=== PATIENT | female | born 1990 | race Caucasian/White ===

== ENCOUNTER 2023-05-22 15:18 | Emergency (ER) | payer OTHER, SELFPAY ==
[2023-05-22 15:41] VITALS: BP 138/96; PULSE 117; RESP 20; TEMP 37.3; O2SAT 96
[2023-05-22 15:46] VITALS: O2SAT 96
[2023-05-22] MEDS: KETOROLAC (*BKC) 60 MG/2 ML VIAL IM (15:51)
[2023-05-22] MEDS: ONDANSETRON HCL ODT 4 MG TABLET PO (15:52)
[2023-05-22 16:26] LABS: Strep Group A RT-PCR NOT DETECTED (Negative)
[2023-05-22 16:29] LABS: SARS-CoV-2 RNA PCR Negative (Negative)
[2023-05-22 16:39] LABS: Influenza A QL RT-PCR Negative (Negative); Influenza B QL RT-PCR Negative (Negative); RSV RNA, RT-PCR Negative (Negative)
--- NOTE | 2023-05-22 16:46 | ED.URI ---
HPI - URI/Sore Throat General Chief Complaint: Upper Respiratory Infection Stated Complaint: Cold symptoms Time Seen by Provider: 05/22/23 15:25 Source: patient Mode of arrival: ambulatory Limitations: no limitations History of Present Illness HPI Narrative: this is a 33-year-old female with no significant past medical history presents with cough congestion sinus pressure with a sinus headache with postnasal drip no shortness of breath no audible wheezing no fever chills. MD elicited complaint: cough, nasal congestion and sinus pain Onset (ago): day(s) Consistency: constant Severity: moderate Description of mucous: clear Exacerbating factors: nothing Related Data Allergies Allergy/AdvReac Type Severity Reaction Status Date / Time codeine Allergy Rash Verified 05/22/23 15:40 Penicillins Allergy Rash Verified 05/22/23 15:40 Review of Systems Review of Systems: All systems reviewed & are unremarkable except as noted in HPI and below PMFSH Past Medical History Medical History Patient denies medical problems Exam Const: General: healthy appearing Nutritional Appearance: well nourished Orientation/consciousness: patient oriented x3 Limitations: no limitations HENMT: Head: normal to inspection Other: frontal sinus and maxillary sinus tenderness with palpation Neck: Neck: normal visual inspection, no lymphadenopathy and no meningeal signs Resp: Effort & Inspection: normal respiratory effort Auscultation: clear to auscultation bilaterally Cardio: Rate: regular rate Rhythm: regular rhythm GI: GI Palp: Yes Soft to palpation Course Course Emergency Course: patient with headache and nausea given Zofran and Toradol, strep and COVID RSV and influenza negative will give a dose of Zithromax and sent a prescription for Z-Brant to patient's pharmacy. Vital Signs Vital signs: Vital Signs Temperature 37.3 C 05/22/23 15:41 Pulse Rate 117 H 05/22/23 15:41 Respiratory Rate 20 05/22/23 15:41 Blood Pressure 138/96 H 05/22/23 15:41 Pulse Oximetry 96 05/22/23 15:41 Oxygen Delivery Room Air 05/22/23 15:41 Temperature 37.3 C 05/22/23 15:41 Pulse Rate 117 H 05/22/23 15:41 Respiratory Rate 20 05/22/23 15:41 Blood Pressure 138/96 H 05/22/23 15:41 Pulse Oximetry 96 05/22/23 15:46 Oxygen Delivery Room Air 05/22/23 15:41 MDM - URI/Sore Throat Lab Data Labs: Lab Results 05/22/23 Range/Units 15:48 Influenza A (RT-PCR) Negative (Negative) Influenza B (RT-PCR) Negative (Negative) RSV (RT-PCR) Negative (Negative) SARS-CoV-2 RNA (RT-PCR) Negative (Negative) Group A Strep (PCR) Not detected (Negative) Critical Care Time Critical Care Time Critical Care Time: No Discharge Plan Discharge Clinical Impression: Sinusitis Qualifiers: Sinusitis location: frontal Chronicity: acute Recurrence: non-recurrent Qualified Code(s): J01.10 - Acute frontal sinusitis, unspecified Patient Disposition: Home, Self-Care Condition: Stable Instructions: Antibiotic Form, Sinusitis (ED) Additional Instructions: To take medicine as prescribed and follow-up with primary care physician if symptoms persist or worsen. Prescriptions: New azithromycin [Zithromax Z-Brant] 250 mg tablet See Rx Instructions .ROUTE .COMPLEX Qty: 6 0RF Rx Instructions: For 250 mg dose pack: take 500 mg today (day 1), then 250 mg for 4 days (days 2-5) naproxen 500 mg tablet 500 mg PO BID PRN (Reason: pain) Qty: 14 0RF fluticasone propionate [Flonase Allergy Relief] 50 mcg/actuation spray,suspension 2 spray intranasal DAILY Qty: 16 0RF Rx Instructions: administer into each nostril Follow-up/Referrals: UNKNOWN,DOCTOR [Primary Care Provider] - Time of Disposition: 16:52
[2023-05-22 16:59] VITALS: BP 114/76; PULSE 104; RESP 18; TEMP 37.4; O2SAT 94
[2023-05-22] MEDS: AZITHROMYCIN 250 MG TABLET 500 MG PO (17:00)
== END 2023-05-22 17:02 | disposition home or self-care (01) ==
PROVIDERS: Emergency Provider Emergency Medicine
DX: J01.10 Acute frontal sinusitis, unspecified (principal); Z20.822 Contact with and (suspected) exposure to COVID-19
CPT/HCPCS: 87637; 87651; 96372; 99283; A9270; J1885

== ENCOUNTER 2023-08-01 16:11 | Emergency (ER) | payer OTHER, SELFPAY ==
--- NOTE | ~2023-08-01 | XR_ITS ---
EXAMINATION: XR chest 1V portable DATE: 08/01/2023 16:41 INDICATION: Chest pain. TECHNIQUE: A single frontal view of the chest was obtained. COMPARISON: None. FINDINGS: There is no pneumonia, pleural effusion, or pneumothorax. The heart size is normal. IMPRESSION: 1. No acute cardiopulmonary disease. Reviewed, dictated and finalized at location E. [employer]
[2023-08-01 16:16] VITALS: BP 147/81; PULSE 111; RESP 16; TEMP 37.7; O2SAT 97
--- NOTE | 2023-08-01 16:22 | ED.URI ---
HPI - URI/Sore Throat General Chief Complaint: Upper Respiratory Infection Stated Complaint: flu symptoms Time Seen by Provider: 08/01/23 16:21 Source: patient Mode of arrival: ambulatory Limitations: no limitations History of Present Illness HPI Narrative: Patient is a 33-year-old female with a cough and chest congestion for the past 3 days. She has body aches and pains. She has a low-grade fever. She has associated nausea vomiting. MD elicited complaint: fever, cough, sore throat, nasal congestion and sinus pain Onset (ago): day(s) (3) Consistency: constant and progressively worsening Severity: moderate Description of mucous: yellow Able to tolerate fluids by mouth: Yes Exacerbating factors: nothing Relieving factors: nothing Context: sick contacts (kids) Associated symptoms: headache, rhinorrhea, nasal congestion, sore throat, cough, shortness of breath, nausea and vomiting Treatments prior to arrival: none Related Data Home Medications Medication Instructions Recorded Confirmed gabapentin 100 mg capsule 100 mg PO TID 08/01/23 08/01/23 prazosin 1 mg capsule 1 mg PO HS 08/01/23 08/01/23 Allergies Allergy/AdvReac Type Severity Reaction Status Date / Time codeine Allergy Rash Verified 08/01/23 16:20 Penicillins Allergy Rash Verified 08/01/23 16:20 Review of Systems Review of Systems: All systems reviewed & are unremarkable except as noted in HPI and below Constitutional: Constitutional: Reports no additional constitutional complaints Eyes: Eyes: Reports no additional eye complaints ENT: Reports system reviewed and no additional complaints, except as documented Cardiovascular: Cardiovascular: Reports no additional cardiovascular complaints Respiratory: Respiratory: Reports no additional respiratory complaints Gastrointestinal: Gastrointestinal: Reports no additional gastrointestinal complaints Genitourinary: Genitourinary: Reports no additional female genitourinary complaints Musculoskeletal: Musculoskeletal: Reports no additional musculoskeletal complaints Integumentary/Breasts: Skin/Breast: Reports system reviewed and no additional complaints, except as docu Neurologic: Reports system reviewed and no additional complaints, except as documented Psychiatric: Psychiatric: Reports no additional psychiatric complaints Endocrine: Endocrine: Reports no additional endocrine complaints Hematologic/Lymphatic: Hematologic/Lymphatic: Reports no additional hematologic/lymphatic complaints Allergic/Immunologic: Allergic/Immunologic: Reports no additional allergic/immunologic complaints PMFSH Past Medical History Medical History Patient denies medical problems Exam Const: General: ill appearing Nutritional Appearance: well nourished Orientation/consciousness: patient oriented x3 HENMT: Head: normal to inspection Ears: external ears normal Face/Nose/Sinus: Normal external nose present Eyes: Conjunctivae: conjunctivae normal Pupils: Equal, round and reactive pupils present EOM: EOMs intact bilaterally Neck: Neck: normal visual inspection Chest: Chest palpation & inspection: normal inspection of the chest Resp: Effort & Inspection: normal respiratory effort and not labored Auscultation: clear to auscultation bilaterally and no crackles Cardio: Rate: regular rate Rhythm: regular rhythm Heart sounds: no murmurs GI: Inspection: non-distended GI Palp: Yes Soft to palpation and No Tenderness to palpation present (GI) Auscultation: normal bowel sounds : General: Yes bladder normal to palpation Back/Spine/Pelvis: Back: no CVA tenderness Skin: General skin exam: normal color Rashes: no rashes Wounds: no wounds Neuro: General: patient oriented x3 Cranial nerves: Yes Nystagmus not present Speech: normal speech Extrem: General: normal to inspection Psych: Mental Status: mental status grossly normal Affect: normal affect Attitud
[2023-08-01 16:58] LABS: SARS-CoV-2 RNA PCR Negative (Negative)
[2023-08-01 16:59] LABS: Influenza A QL RT-PCR Negative (Negative); Influenza B QL RT-PCR Positive (Negative); RSV RNA, RT-PCR Negative (Negative)
[2023-08-01 17:04] VITALS: BP 142/87; PULSE 101; RESP 18; TEMP 37.3; O2SAT 99
== END 2023-08-01 17:13 | disposition home or self-care (01) ==
PROVIDERS: Emergency Provider Emergency Medicine
DX: J10.1 Influenza due to other identified influenza virus with other respiratory manifestations (principal); Z79.899 Other long term (current) drug therapy; Z20.822 Contact with and (suspected) exposure to COVID-19
CPT/HCPCS: 71045; 87637; 99283

== ENCOUNTER 2023-08-07 17:18 | Emergency (ER) | payer OTHER, SELFPAY ==
--- NOTE | ~2023-08-07 | XR_ITS ---
EXAMINATION: XR chest 1V portable INDICATION: Cough and congestion TECHNIQUE: Portable AP chest at 1815 hours COMPARISON: 08/01/2023 FINDINGS: The lungs are free of acute opacities. No pleural effusion or pneumothorax. The cardiomedia stinal silhouette is normal. The visualized bones and soft tissues are unremarkable. IMPRESSION: 1. No acute cardiopulmonary abnormality. Reviewed, dictated and finalized at location F. [employer] READER
[2023-08-07 17:20] VITALS: BP 135/92; PULSE 96; RESP 20; TEMP 36.9; O2SAT 96
[2023-08-07 18:03] VITALS: O2SAT 96
--- NOTE | 2023-08-07 18:24 | ED.URI ---
HPI - URI/Sore Throat General Chief Complaint: Upper Respiratory Infection Stated Complaint: cough and sore throat Time Seen by Provider: 08/07/23 17:19 Source: patient Mode of arrival: ambulatory Limitations: no limitations History of Present Illness HPI Narrative: This is a 33-year-old female recently diagnosed with influenza was seen in our ER about 3 to 4 days ago, continues to have cough and congestion no fever or chills no nausea or vomiting. MD elicited complaint: cough and nasal congestion Onset (ago): day(s) Consistency: constant Severity: mild Related Data Allergies Allergy/AdvReac Type Severity Reaction Status Date / Time codeine Allergy Rash Verified 08/07/23 17:42 Penicillins Allergy Rash Verified 08/07/23 17:42 Review of Systems Review of Systems: All systems reviewed & are unremarkable except as noted in HPI and below PMFSH Past Medical History Medical History Patient denies medical problems Exam Const: General: healthy appearing and no acute distress Nutritional Appearance: well nourished Limitations: no limitations HENMT: Head: normal to inspection Chest: Chest palpation & inspection: normal inspection of the chest Resp: Effort & Inspection: normal respiratory effort Auscultation: clear to auscultation bilaterally Cardio: Rate: regular rate Rhythm: regular rhythm GI: GI Palp: Yes Soft to palpation Course Course Emergency Course: Patient recently diagnosed with influenza, has a persistent cough chest x-ray performed shows no acute cardiopulmonary abnormality. Vital Signs Vital signs: Vital Signs Temperature 36.9 C 08/07/23 17:20 Pulse Rate 08/07/23 17:20 Respiratory Rate 08/07/23 17:20 Blood Pressure 135/92 H 08/07/23 17:20 Pulse Oximetry 08/07/23 17:20 Oxygen Delivery Room Air 08/07/23 17:20 Temperature 36.9 C 08/07/23 17:20 Pulse Rate 08/07/23 17:20 Respiratory Rate 08/07/23 17:20 Blood Pressure 135/92 H 08/07/23 17:20 Pulse Oximetry 08/07/23 18:03 Oxygen Delivery Room Air 08/07/23 18:03 Critical Care Time Critical Care Time Critical Care Time: No Discharge Plan Discharge Clinical Impression: Influenza Patient Disposition: Home, Self-Care Condition: Stable Instructions: Antibiotic Form, Influenza (ED) Additional Instructions: Advised to take medicine as prescribed and follow up with primary within 1 week for further evaluation and treatment. Prescriptions: New ProAir RespiClick 90 mcg/actuation aerosol powdr breath activated 2 inh inhalation QID PRN (Reason: shortness of breath) Qty: 1 0RF benzonatate 100 mg capsule 100 mg PO TID Qty: 20 0RF Follow-up/Referrals: Murali,Luke Durham, [employer] [Primary Care Provider] - Time of Disposition: 18:27
[2023-08-07 18:49] VITALS: BP 129/74; PULSE 88; RESP 16; TEMP 37; O2SAT 98
== END 2023-08-07 18:49 | disposition home or self-care (01) ==
PROVIDERS: Emergency Provider Emergency Medicine; PCP Nurse Practitioner Family
DX: J11.1 Influenza due to unidentified influenza virus with other respiratory manifestations (principal)
CPT/HCPCS: 71045; 99283

== ENCOUNTER 2023-12-21 10:29 | Emergency (ER) | payer OTHER, SELFPAY ==
--- NOTE | ~2023-12-21 | CT_ITS ---
EXAMINATION: CT abdomen pelvis wo con DATE: 12/21/2023 11:15 INDICATION: Bilateral flank pain TECHNIQUE: Computed tomography (CT) of the abdomen and pelvis was performed without intravenous contr ast. Automated exposure control and iterative reconstruction technique were employed. The The dose-le ngth product was 909.42 mGy-cm. COMPARISON: None FINDINGS: Lung bases are clear. Heart size is normal. No pericardial or pleural effusion. Liver, gallbladder, s pleen and pancreas and bilateral adrenal glands are normal. Kidneys and ureters are normal with no ur olithiasis, hydroureteronephrosis or perinephric/ureteral stranding. Bladder is decompressed. There i s a macroscopic fat filled cleft along the anterior lower uterine segment potentially sectio n scar. Bilateral adnexa are unremarkable. There are few small phleboliths in the pelvis. Bowels incl uding the appendix are normal. No free intraperitoneal gas or fluid. No pathologically enlarged abdom inal or pelvic lymphadenopathy. Bones are unremarkable. IMPRESSION: 1. No urolithiasis or acute intra-abdominal/pelvic process. Reviewed, dictated and finalized at location A.
[2023-12-21 10:31] VITALS: BP 147/96; PULSE 105; RESP 18; TEMP 37.2; O2SAT 98
--- NOTE | 2023-12-21 10:45 | ED.GENADULT ---
HPI - General Adult General Chief complaint: Urogenital-Female Stated complaint: urinary frequency Time Seen by Provider: 12/21/23 10:32 History of Present Illness HPI narrative: Yudith is a 33F with a PMH of pyelonephritis that presented to the ED with a few days of increased urinary frequency, dysuria, aches and now bilateral kidney pain. No fevers, chills, vomiting, CP or dyspnea. Related Data Allergies Allergy/AdvReac Type Severity Reaction Status Date / Time codeine Allergy Rash Verified 12/21/23 10:34 Penicillins Allergy Rash Verified 12/21/23 10:34 Review of Systems Review of Systems: All systems reviewed & are unremarkable except as noted in HPI and below [facility] Past Medical History Medical History Patient denies medical problems Exam Const: General: cooperative, healthy appearing, comfortable, no acute distress, well developed, alert, awake and Physically active Orientation/consciousness: oriented to person, oriented to place and oriented to time HENMT: Head: normal to inspection, normocephalic and atraumatic Ears: hearing grossly normal bilaterally and external ears normal Face/Nose/Sinus: Normal external nose present Eyes: General: appearance normal, both eyes and all related structures Periorbital: periorbital findings normal Sclera: sclerae normal Pupils: Equal, round and reactive pupils present Neck: Neck: normal visual inspection Chest: Chest palpation & inspection: normal inspection of the chest Resp: Effort & Inspection: normal respiratory effort, able to speak in complete sentences and no respiratory distress Auscultation: clear to auscultation bilaterally Cardio: Jugular venous distension: no JVD Rate: regular rate Rhythm: regular rhythm GI: Inspection: normal to inspection GI Palp: Yes Soft to palpation Auscultation: normal bowel sounds : Other: Bilateral flank tenderness Skin: General skin exam: normal color and no rashes or lesions noted Neuro: General: oriented to person, oriented to place and oriented to time Cranial nerves: Yes Equal, round and reactive pupils present Extrem: General: normal to inspection Course Course Emergency Course: -Ordered UA, CT, labs, fluids, toradol, zofran and ceftriaxone UA has blood, bacteria, leuk esterase likely from UTI. CBC and chemistries unremarkable EXAMINATION: CT abdomen pelvis wo con DATE: 12/21/2023 11:15 INDICATION: Bilateral flank pain TECHNIQUE: Computed tomography (CT) of the abdomen and pelvis was performed without intravenous contrast. Automated exposure control and iterative reconstruction technique were employed. The The dose-length product was 909.42 mGy-cm. COMPARISON: None FINDINGS: Lung bases are clear. Heart size is normal. No pericardial or pleural effusion. Liver, gallbladder, spleen and pancreas and bilateral adrenal glands are normal. Kidneys and ureters are normal with no urolithiasis, hydroureteronephrosis or perinephric/ureteral stranding. Bladder is decompressed. There is a macroscopic fat filled cleft along the anterior lower uterine segment potentially section scar. Bilateral adnexa are unremarkable. There are few small phleboliths in the pelvis. Bowels including the appendix are normal. No free intraperitoneal gas or fluid. No pathologically enlarged abdominal or pelvic lymphadenopathy. Bones are unremarkable. IMPRESSION: 1. No urolithiasis or acute intra-abdominal/pelvic process. Vital Signs Vital signs: Vital Signs Temperature 98.9 F 12/21/23 10:31 Pulse Rate 105 H 12/21/23 10:31 Respiratory Rate 18 12/21/23 10:31 Blood Pressure 147/96 H 12/21/23 10:31 Pulse Oximetry 98 12/21/23 10:31 Oxygen Delivery Room Air 12/21/23 10:31 Temperature 98.9 F 12/21/23 10:31 Pulse Rate 66 12/21/23 12:38 Respiratory Rate 16 12/21/23 12:38 Blood Pressure 124/78 12/21/23 12:38 Pulse Oximetry 99 12/21/23 12:38 Ox
[2023-12-21 11:00] LABS: Basophils Absolute Auto 0.04 K/mm3 (0.00-0.10); Basophils Percent Auto 0.6 % (0.0-1.0); Eosinophils Absolute Auto 0.09 K/mm3 (0.02-0.50); Eosinophils Percent Auto 1.4 % (1.0-6.0); Hematocrit 37.8 % (35.0-49.0); Hemoglobin 11.9 g/dL (12.0-15.0); Immature Granulocyte Absolute 0.02 K/mm3 (0.00-0.00); Immature Granulocyte Percent A 0.3 % (0.0-0.0); Lymphocytes Percent Auto 19.9 % (18.0-42.0); Mean Corpuscular HGB Conc 31.5 g/dL (32-36); Mean Corpuscular Volume 73.1 fL (78.0-102.0); Mean Platelet Volume 9.5 fl (9.2-11.8); Monocytes Absolute Auto 0.38 K/mm3 (0.10-0.90); Monocytes Percent Auto 5.8 % (2.0-11.0); Platelet Count Result 386 K/mm3 (150-420); Red Blood Count 5.17 M/mm3 (4.20-5.40); Red Cell Distribution Width 17.4 % (11.6-14.4); White Blood Count 6.5 K/mm3 (4.8-10.8)
[2023-12-21 11:01] LABS: Appearance Urine Clear (Clear); Bilirubin Urine Negative (Negative); Blood Urine Negative (Negative); Color Urine Yellow (Yellow); Glucose Urine UA Negative (Negative); Ketones Urine Negative (Negative); Leukocyte Esterase Ur 1+ LEU/UL (Negative); Nitrate Urine Negative (Negative); Protein Urine Negative (Negative)
[2023-12-21 11:08] LABS: Add Urine Microscopic? YES
[2023-12-21 11:09] LABS: Amorphous Sediment Urine Moderate; Bacteria Urine 1+ /hpf; Mucus Urine Moderate /lpf; Squamous Epithelial Cell Urine Many /hpf (Few); WBC Urine 16-20 /hpf (0-3)
[2023-12-21 11:13] LABS: Alanine Aminotransferase 19 U/L (14-59); Albumin Level 3.7 g/dL (3.4-5.0); Alkaline Phosphatase 79 U/L (46-116); Anion Gap 12 mmol/L (4-12); Aspartate Amino Transferase 14 U/L (15-37); Bilirubin,Total 0.2 mg/dL (0.00-1.00); Blood Urea Nitrogen 10 mg/dL (7-18); CRP 1.6 mg/dL (0.0-0.9); Calcium 8.9 mg/dL (8.5-10.1); Carbon Dioxide 25 mmol/L (21-32); Chloride 101 mmol/L (98-108); Estimated CRCL calculation 108 ml/min; Estimated Glomerular Filt Rate > 60; Glucose 120 mg/dL (70-99); Lipase 31 U/L (16-77); Osmolality Calculated 286 mOsm/kg (285-295); Sodium 138 mmol/L (136-145); Total Protein 7.7 g/dL (6.4-8.2)
[2023-12-21] MEDS: SODIUM CHLORIDE 0.9% IV 1,000 ML 999 ML IV CONT (11:17)
[2023-12-21] MEDS: KETOROLAC 15 MG/ML VIAL (*BKC) IV PUSH (11:20)
[2023-12-21] MEDS: cefTRIAXone 2 GM/NS 100 ML 2 GM/100 ML BAG IVPB (11:21)
[2023-12-21] MEDS: ONDANSETRON INJ 4 MG/2 ML VIAL IV PUSH (11:21)
[2023-12-21 12:38] VITALS: BP 124/78; PULSE 66; RESP 16; O2SAT 99
--- NOTE | 2023-12-23 12:13 | PC.NURSE ---
Final urine culture report: Mixed genital ole. Per ERP no further treatment or action needed.
== END 2023-12-21 12:43 | disposition home or self-care (01) ==
PROVIDERS: Emergency Provider Family Medicine
DX: N39.0 Urinary tract infection, site not specified (principal)
CPT/HCPCS: 36415; 74176; 80053; 81001; 83605; 83690; 85025; 86140; 87086; 87088; 96361; 96365; 96375; 99284; J0696; J1885; J2405; J7030

== ENCOUNTER 2024-02-15 10:30 | Emergency (ER) | payer OTHER, SELFPAY ==
[2024-02-15 10:30] VITALS: BP 130/70; PULSE 96; RESP 18; TEMP 36.3; O2SAT 96
--- NOTE | 2024-02-15 10:37 | ED.URI ---
HPI - URI/Sore Throat General Chief Complaint: Upper Respiratory Infection Stated Complaint: cough Time Seen by Provider: 02/15/24 10:36 Source: patient Mode of arrival: ambulatory Limitations: no limitations History of Present Illness HPI Narrative: Patient is a 33-year-old female who has a cough and headache with upper respiratory congestion. Her child's school and had it recently as well. No asthma or shortness of breath. MD elicited complaint: cough and nasal congestion Onset (ago): day(s) (2) Consistency: constant Severity: mild Pain scale (0-10): 3 Description of mucous: clear and watery Able to tolerate fluids by mouth: Yes Exacerbating factors: nothing Relieving factors: nothing Context: sick contacts Associated symptoms: myalgias, headache, nasal congestion, nausea and vomiting Treatments prior to arrival: cold medicine Related Data Allergies Allergy/AdvReac Type Severity Reaction Status Date / Time codeine Allergy Rash Verified 02/15/24 10:57 Penicillins Allergy Rash Verified 02/15/24 10:57 Review of Systems Review of Systems: All systems reviewed & are unremarkable except as noted in HPI and below Constitutional: Constitutional: Reports no additional constitutional complaints Eyes: Eyes: Reports no additional eye complaints ENT: Reports system reviewed and no additional complaints, except as documented Cardiovascular: Cardiovascular: Reports no additional cardiovascular complaints Respiratory: Respiratory: Reports no additional respiratory complaints Gastrointestinal: Gastrointestinal: Reports no additional gastrointestinal complaints Genitourinary: Genitourinary: Reports no additional female genitourinary complaints Musculoskeletal: Musculoskeletal: Reports no additional musculoskeletal complaints Integumentary/Breasts: Skin/Breast: Reports system reviewed and no additional complaints, except as docu Neurologic: Reports system reviewed and no additional complaints, except as documented Psychiatric: Psychiatric: Reports no additional psychiatric complaints Endocrine: Endocrine: Reports no additional endocrine complaints Hematologic/Lymphatic: Hematologic/Lymphatic: Reports no additional hematologic/lymphatic complaints Allergic/Immunologic: Allergic/Immunologic: Reports no additional allergic/immunologic complaints PMFSH Past Medical History Medical History Patient denies medical problems Exam Const: General: healthy appearing Nutritional Appearance: well nourished Orientation/consciousness: patient oriented x3 HENMT: Head: normal to inspection Ears: external ears normal Face/Nose/Sinus: Normal external nose present Eyes: Conjunctivae: conjunctivae normal Pupils: Equal, round and reactive pupils present EOM: EOMs intact bilaterally Neck: Neck: normal visual inspection Chest: Chest palpation & inspection: normal inspection of the chest Resp: Effort & Inspection: normal respiratory effort and not labored Auscultation: clear to auscultation bilaterally and no crackles Cardio: Rate: regular rate Rhythm: regular rhythm Heart sounds: no murmurs GI: Inspection: non-distended GI Palp: Yes Soft to palpation and No Tenderness to palpation present (GI) Auscultation: normal bowel sounds : General: Yes bladder normal to palpation Back/Spine/Pelvis: Back: no CVA tenderness Skin: General skin exam: normal color Rashes: no rashes Wounds: no wounds Neuro: General: patient oriented x3 Cranial nerves: Yes Nystagmus not present Speech: normal speech Extrem: General: normal to inspection Psych: Mental Status: mental status grossly normal Affect: normal affect Attitude: cooperative Course Vital Signs Vital signs: Vital Signs Temperature 36.3 C L 02/15/24 10:30 Pulse Rate 96 02/15/24 10:30 Respiratory Rate 18 02/15/24 10:30 Blood Pressure 130/70 02/15/24 10:30 Pulse Oximetry 96 02/15/24 10:30
[2024-02-15 10:55] LABS: Pregnancy On Board Control Positive; Urine Pregnancy Test Negative
[2024-02-15 11:03] VITALS: O2SAT 96
[2024-02-15 11:23] LABS: SARS-CoV-2 RNA PCR Negative (Negative)
[2024-02-15 11:24] LABS: Influenza A QL RT-PCR Negative (Negative); Influenza B QL RT-PCR Negative (Negative); RSV RNA, RT-PCR Negative (Negative)
[2024-02-15 12:00] VITALS: BP 121/60; PULSE 65; RESP 16; TEMP 36.6; O2SAT 98
== END 2024-02-15 12:00 | disposition home or self-care (01) ==
PROVIDERS: Emergency Provider Emergency Medicine
DX: B34.9 Viral infection, unspecified (principal); Z20.822 Contact with and (suspected) exposure to COVID-19
CPT/HCPCS: 81025; 87637; 99283

== ENCOUNTER 2024-03-05 16:52 | Emergency (ER) | payer OTHER, SELFPAY ==
--- NOTE | ~2024-03-05 | CT_ITS ---
EXAMINATION: CT abdomen pelvis wo con DATE: 03/05/2024 17:39 INDICATION: LLQ abdominal pain x3 days TECHNIQUE: Computed tomography (CT) of the abdomen and pelvis was performed without intravenous contr ast. Automated exposure control and iterative reconstruction technique were employed. The dose-length product was 946.70 mGy-cm. COMPARISON: 12/21/2023. FINDINGS: Lower thorax: Unremarkable Liver: Normal. Biliary/Gallbladder: Gallbladder is normal. No bile duct dilation. Pancreas: No mass or duct dilation. Spleen: Normal. Adrenals:No mass. Kidneys: No suspicious mass, obstructing stone, or hydronephrosis. GI tract: No small or large bowel dilation. Normal appendix. Mesentery/Peritoneum: No ascites, mass, or free air. Retroperitoneum: No mass. Pelvis: Possible scar in otherwise normal uterus. Normal bilateral ovaries. 2.1 cm simple ri ght ovarian cyst. Soft Tissues: Soft tissues and body wall unremarkable. Bones: No acute osseous finding. IMPRESSION: No acute abdominopelvic process detected Reviewed, dictated and finalized at location K.
[2024-03-05 16:54] VITALS: BP 147/94; PULSE 88; RESP 18; TEMP 36.9; O2SAT 97
--- NOTE | 2024-03-05 16:55 | ED.ABDPAIN ---
HPI - Abdominal Pain General Chief Complaint: Abdominal Pain Stated Complaint: left side AB pain Time Seen by Provider: 03/05/24 16:54 Source: patient Mode of arrival: ambulatory Limitations: no limitations History of Present Illness HPI narrative: Patient is a 34-year-old female with left lower quadrant and left groin discomfort for the past 3-4 days. It is a sharp pain. It is intermittent. It is 6/10. She is due for her menstrual cycle in the next few days. She has a history of ovarian cysts. Normal bowel movement this morning. MD elicited complaint: abdominal pain Pertinent past history: other ( Ovarian cysts) Onset (ago): day(s) (4) Pain Consistency: intermittent Location: LLQ and groin ( left) Severity: moderate Pain scale (0-10): 6 Quality: stabbing and sharp Radiation: none Migration to: no migration Exacerbating factors: nothing Relieving factors: nothing Context: confirms history of similar episodes ( ovarian cysts) Associated symptoms: denies other symptoms Related Data Allergies Allergy/AdvReac Type Severity Reaction Status Date / Time codeine Allergy Rash Verified 02/15/24 10:57 Penicillins Allergy Rash Verified 02/15/24 10:57 Review of Systems Review of Systems: All systems reviewed & are unremarkable except as noted in HPI and below Constitutional: Constitutional: Reports no additional constitutional complaints Eyes: Eyes: Reports no additional eye complaints ENT: Reports system reviewed and no additional complaints, except as documented Cardiovascular: Cardiovascular: Reports no additional cardiovascular complaints Respiratory: Respiratory: Reports no additional respiratory complaints Gastrointestinal: Gastrointestinal: Reports no additional gastrointestinal complaints Genitourinary: Genitourinary: Reports no additional female genitourinary complaints Musculoskeletal: Musculoskeletal: Reports no additional musculoskeletal complaints Neurologic: Reports system reviewed and no additional complaints, except as documented Psychiatric: Psychiatric: Reports no additional psychiatric complaints Endocrine: Endocrine: Reports no additional endocrine complaints Hematologic/Lymphatic: Hematologic/Lymphatic: Reports no additional hematologic/lymphatic complaints Allergic/Immunologic: Allergic/Immunologic: Reports no additional allergic/immunologic complaints PMFSH Past Medical History Medical History Patient denies medical problems Exam Const: General: healthy appearing Nutritional Appearance: well nourished Orientation/consciousness: patient oriented x3 HENMT: Head: normal to inspection Ears: external ears normal Face/Nose/Sinus: Normal external nose present Eyes: Conjunctivae: conjunctivae normal Pupils: Equal, round and reactive pupils present EOM: EOMs intact bilaterally Neck: Neck: normal visual inspection Chest: Chest palpation & inspection: normal inspection of the chest Resp: Effort & Inspection: normal respiratory effort and not labored Auscultation: clear to auscultation bilaterally and no crackles Cardio: Rate: regular rate Rhythm: regular rhythm Heart sounds: no murmurs GI: Inspection: non-distended GI Palp: Yes Soft to palpation and No Tenderness to palpation present (GI) Auscultation: normal bowel sounds : General: Yes bladder normal to palpation Back/Spine/Pelvis: Back: no CVA tenderness Skin: General skin exam: normal color Rashes: no rashes Wounds: no wounds Neuro: General: patient oriented x3 Cranial nerves: Yes Nystagmus not present Speech: normal speech Gait exam (Neuro): Normal gait present Extrem: General: normal to inspection Psych: Mental Status: mental status grossly normal Affect: normal affect Attitude: cooperative Course Vital Signs Vital signs: Vital Signs Temperature 36.9 C 03/05/24 16:54 Pulse Rate 88 03/05/24 16:54 Respiratory Rate 18 03/05/24 16:54
[2024-03-05 17:12] LABS: Add Urine Microscopic? YES; Appearance Urine Clear (Clear); Bilirubin Urine Negative (Negative); Blood Urine 1+ (Negative); Color Urine Light Yellow (Yellow); Glucose Urine UA Negative (Negative); Ketones Urine Negative (Negative); Leukocyte Esterase Ur 3+ LEU/UL (Negative); Nitrate Urine Negative (Negative); Protein Urine Negative (Negative); pH Urine 6.5 (5.0-8.0)
[2024-03-05] MEDS: KETOROLAC (*BKC) 60 MG/2 ML VIAL IM (17:15)
[2024-03-05 17:17] LABS: Basophils Absolute Auto 0.02 K/mm3 (0.00-0.10); Basophils Percent Auto 0.4 % (0.0-1.0); Eosinophils Absolute Auto 0.12 K/mm3 (0.02-0.50); Eosinophils Percent Auto 2.4 % (1.0-6.0); Hematocrit 37.4 % (35.0-49.0); Hemoglobin 11.6 g/dL (12.0-15.0); Lymphocytes Absolute Auto 1.62 K/mm3 (1.10-4.50); Lymphocytes Percent Auto 31.8 % (18.0-42.0); Mean Corpuscular Hemoglobin 23.1 pg (27.0-31.0); Mean Corpuscular Volume 74.5 fL (78.0-102.0); Mean Platelet Volume 9.5 fl (9.2-11.8); Monocytes Absolute Auto 0.52 K/mm3 (0.10-0.90); Monocytes Percent Auto 10.2 % (2.0-11.0); Neutrophils Absolute Auto 2.81 K/mm3 (1.70-7.20); Neutrophils Percent Auto 55.2 % (50.0-70.0); Platelet Count Result 364 K/mm3 (150-420); Red Blood Count 5.02 M/mm3 (4.20-5.40); Red Cell Distribution Width 17.7 % (11.6-14.4); White Blood Count 5.1 K/mm3 (4.8-10.8)
[2024-03-05 17:18] LABS: Bacteria Urine 2+ /hpf; Squamous Epithelial Cell Urine Few /hpf (Few); WBC Urine 16-20 /hpf (0-3)
[2024-03-05 17:19] LABS: Pregnancy On Board Control Positive; Urine Pregnancy Test Negative
[2024-03-05 17:32] LABS: Alanine Aminotransferase 26 U/L (14-59); Albumin Level 3.7 g/dL (3.4-5.0); Alkaline Phosphatase 79 U/L (46-116); Anion Gap 12 mmol/L (4-12); Aspartate Amino Transferase 18 U/L (15-37); Bilirubin,Total 0.2 mg/dL (0.00-1.00); Blood Urea Nitrogen 9 mg/dL (7-18); Calcium 8.7 mg/dL (8.5-10.1); Carbon Dioxide 25 mmol/L (21-32); Chloride 102 mmol/L (98-108); Estimated CRCL calculation 104 ml/min; Estimated Glomerular Filt Rate > 60; Glucose 80 mg/dL (70-99); Lipase 29 U/L (16-77); Osmolality Calculated 285 mOsm/kg (285-295); Potassium 3.8 mmol/L (3.5-5.1); Sodium 139 mmol/L (136-145); Total Protein 7.5 g/dL (6.4-8.2)
[2024-03-05 17:37] LABS: Lactic Acid Reflex 0.8 mmol/L (0.4-2.0)
--- NOTE | 2024-03-05 17:57 | PC.NURSE ---
pt informed of pending urine culture. encouraged to complete all antibiotics. if any change is needed to antibiotic, will be notified by phone. pt voiced understanding
[2024-03-05 17:58] VITALS: BP 138/80; PULSE 84; RESP 20; TEMP 36.6; O2SAT 99
--- NOTE | 2024-03-07 13:41 | PC.NURSE ---
FINAL URINE CULTURE NO GROWTH
== END 2024-03-05 17:49 | disposition home or self-care (01) ==
PROVIDERS: Emergency Provider Emergency Medicine
DX: N30.00 Acute cystitis without hematuria (principal)
CPT/HCPCS: 36415; 74176; 80053; 81001; 81025; 83605; 83690; 85025; 87086; 96372; 99284; J1885

== ENCOUNTER 2024-07-23 10:34 | Emergency (ER) | payer OTHER, SELFPAY ==
[2024-07-23 10:35] VITALS: BP 135/78; PULSE 104; RESP 18; TEMP 36.9; O2SAT 98
--- NOTE | 2024-07-23 10:41 | ED_ITS ---
HPI - URI/Sore Throat General Chief Complaint: Upper Respiratory Infection Stated Complaint: cough, sore throat Source: patient Mode of arrival: ambulatory Limitations: no limitations History of Present Illness HPI Narrative: 34 years old white female came to the ED by private car complaining of coughing, sore throat, nasal and postnasal discharge and headache that started last night. Her son having similar symptoms for the last 7 days. She denies any fever or chills or abdominal pain or back pain or shortness of breath or chest pain. Patient reports a pimple like feeling at the back of her left ear for months Related Data Allergies Allergy/AdvReac Type Severity Reaction Status Date / Time codeine Allergy Rash Verified 02/15/24 10:57 Penicillins Allergy Rash Verified 02/15/24 10:57 Review of Systems Review of Systems: All systems reviewed & are unremarkable except as noted in HPI and below PMFSH Past Medical History Medical History Patient denies medical problems Exam Narrative: General appearance: Well-developed, well-nourished Skin: Normal color 0.5 x 0.5 cm cyst-like lesion at the back of left ear. Slightly tender, no erythema, no discharge Head: Normocephalic, nontraumatic Eyes: Clear conjunctiva ENT: Oropharynx normal, ears normal, nose normal Neck: Supple, nontender Chest and respiratory: Airway patent, no respiratory distress, no accessory muscle use Heart: Regular rate/rhythm Musculoskeletal: Normal range of motion, nontender back Neurologic: Alert and oriented ?3, ENVELOPE STUFFER is normal as tested, no gross motor deficit Course Vital Signs Vital signs: Vital Signs Temperature 36.9 C 07/23/24 10:35 Pulse Rate 104 H 07/23/24 10:35 Respiratory Rate 18 07/23/24 10:35 Blood Pressure 135/78 07/23/24 10:35 Pulse Oximetry 98 07/23/24 10:35 Oxygen Delivery Room Air 07/23/24 10:35 Temperature 36.9 C 07/23/24 10:35 Pulse Rate 104 H 07/23/24 10:35 Respiratory Rate 18 07/23/24 10:35 Blood Pressure 135/78 07/23/24 10:35 Pulse Oximetry 98 07/23/24 10:35 Oxygen Delivery Room Air 07/23/24 10:35 MDM - URI/Sore Throat MDM Narrative Medical decision making narrative: patient came to the ED with upper respiratory viral infection like symptoms Her son had similar symptoms 1-2 weeks ago Patient tested positive for COVID. Discharged on PACS Slo-bid Lab Data Labs: Lab Results 07/23/24 Range/Units 11:19 Influenza A (RT-PCR) Negative (Negative) Influenza B (RT-PCR) Negative (Negative) RSV (RT-PCR) Negative (Negative) SARS-CoV-2 RNA (RT-PCR) Positive A (Negative) Group A Strep (PCR) Not detected (Negative) Discharge Plan Discharge Clinical Impression: COVID-19 Patient Disposition: Home, Self-Care Condition: Stable Instructions: COVID-19 (Coronavirus Disease 2019) (ED) Additional Instructions: Return if symptoms are worsening , call your family physician for appointment, take Tylenol as as needed for aches and pain, continue home medications. Patient Language: Turkmen Prescriptions: New Paxlovid 150-100 mg tablets,dose pack 1 tablet PO BID 5 Days Qty: 10 0RF Rx Instructions: 1 tablet twice a day; No Action ciprofloxacin HCl [Cipro] 500 mg tablet 500 mg PO BID 7 Days Qty: 14 0RF Follow-up/Referrals: UNKNOWN,DOCTOR [Primary Care Provider] -
--- OUTSIDE RECORDS SUMMARY | 2024-07-23 10:49 | XMS_ITS ---
Author Organization [facility] Address [address] [place] [address] Care Team Providers Care Funeral Arrangement Director Name Role Phone Susan Ballard Primary Care Provider [phone] REASON FOR VISIT r/s from 01/23; labs in chart Medications Medication SIG (Take, Route, Frequency, Duration) Notes Start Date End Date Status FLUoxetine HCl 20 MG TAKE 1 CAPSULE BY M OUTH EVERY DAY FOR 30 DAYS for 30 days Active hydrOXYzine Pamoate 25 MG TAKE 1 CAPSULE BY MOUTH TWICE A DAY NEEDED FOR 30 DAYS for 30 days Active Prazosin HCl 1 MG TAKE 1 CAPSULE BY MO UTH EVERYDAY AT BEDTIME for 30 days Active Iron (Ferrous Sulfate) 325 (65 Fe) MG 1 tablet Orally Once a day for 30 days 01/30/2022 Not-Taking Nicotine Lozenge 4mg 4 MG 1 lozenge ever y hour as needed Mouth/Throat up to 15 time(s) a day for 28 days Not-Taking Mirtazapine 15 MG 1 tablet at bedtime Orally Once a day for 30 days Active Multivitamin - 1 tablet Orally Once a day for 30 day(s) Not-Taking Social History Sex Assigned At : Social History Observation Description Sex Assigned At Female Encounters Encounter Location Date Provider Diagnosis [place] [place] [address] 01/28/2023 Susan Ballard PTSD (post-traumatic stress disorder) F43.10 Assessments Encounter Date Diagnosis (ICD Code) Assessment Notes Treatment Notes Treatment Clinical Notes Section Notes 01/28/2023 PTSD (post-traumatic stress disorder) (ICD-10 - F43.10) Plan Of Treatment No Information Progress Notes * Raghu CHAMBERS:1990 (34 yo F)Acc No.[id number]:01/28/2023 UNLOCKED PROGRESS NOTE Patient: Yudith CARR Provider: Salvador Ballard DNP, DEANDRA, ERISA ATTORNEY :1990 A ge:32 Y S ex:Female Date:01/28/2023 Address:[address] [place], [place] [id number] Check In:09:40 AM APARTMENT RENTAL AGENT Subjective: * Chief Complaints: * 1 . R/s from 01/23; labs in chart. * Medical History: * Medications: T aking Prazosin HCl 1 MG Capsule TAKE 1 CAPSULE BY MOUTH EVERYDAY AT BEDTIME , Taking hydrOXYzine Pamoate 25 MG Capsule TAKE 1 CAPSULE BY MOUTH TWICE A DAY NEEDED FOR 30 DAYS , Taking FLUoxetine HCl 20 MG Capsule TAKE 1 CAPSULE BY MOUTH EVERY DAY FOR 30 DAYS , Taking Mirtazapine 15 MG Tablet 1 tablet at bedtime Orally Once a day , Not-Taking Multivitamin - Tablet 1 tablet Orally Once a day , Not-Taking Nicotine Lozenge 4mg 4 MG Lozenge 1 lozenge every hour as needed Mouth/Throat up to 15 time(s) a day , Not-Taking Iron (Ferrous Sulfate) 325 (65 Fe) MG Tablet 1 tablet Orally Once a day Objective: * Vitals: Assessment: * Assessment: 1. P TSD (post-traumatic stress disorder) - F43.10 Plan: * Treatment: * * Electronic signature of Carol Ballard on 07/23/2024 at 10:49 AM APARTMENT RENTAL AGENT Sign off status: Pending * Provider: Salvador Ballard DNP, DEANDRA, ERISA ATTORNEY Date: 0 01/28/2023 Generated for Printing/Faxing/eTransmitting on: 0 07/23/2024 10:49 AM APARTMENT RENTAL AGENT
--- OUTSIDE RECORDS SUMMARY | 2024-07-23 10:49 | XMS_ITS ---
Author Organization [facility] Address [address] [place] [address] Care Team Providers Care Thermal Intelligence Analyst Name Role Phone Susan Ballard Primary Care Provider [phone] REASON FOR VISIT Call back Social History Sex Assigned At : Social History Observation Description Sex Assigned At Female Encounters Encounter Location Date Provider Diagnosis [address] [place] [address] 02/06/2023 Susan Ballard Plan Of Treatment No Information Progress Notes * Cristina CHAMBERSBryanB:1990 (32 yo F)Acc No.[id number]:02/06/2023 Patient: Yudith Valles :1990 A ge:32 Y S ex:Female Address:[address] [place] [address], [address] * true * Date: Generated for Len lundberg/Naya/eTrobbysmitting on: 0 07/23/2024 10:49 AM HEALTH POLICY MANAGER
--- OUTSIDE RECORDS SUMMARY | 2024-07-23 10:49 | XMS_ITS ---
Author Organization [facility] Address [address] [place] [address] Care Team Providers Care Electoral Officer Name Role Phone Susan Ballard Primary Care Provider [phone] REASON FOR VISIT Labs in Chart Social History Sex Assigned At : Social History Observation Description Sex Assigned At Female Encounters Encounter Location Date Provider Diagnosis [facility] [address] [facility] [address] [place] [address] 01/23/2023 Susan Ballard Plan Of Treatment No Information Progress Notes * Bere CHAMBERSB:1990 (34 yo F)Acc No.[id number]:01/23/2023 UNLOCKED PROGRESS NOTE Patient: Yudith CARR Provider: Salvador Ballard DNP, PMHNP-CARLOS, CUFF PRESSER :1990 A ge:32 Y S ex:Female Date:01/23/2023 Address:[address] [place], [place] [id number] Subjective: * Chief Complaints: * 1 . Labs in Chart. * Medical History: Objective: * Vitals: Assessment: Plan: * Treatment: * * Electronic signature of Carol Ballard on 07/23/2024 at 10:49 AM ELEVATOR REPAIRER HELPER Sign off status: Pending * Provider: Salvador Ballard DNP, TOMMY-CARLOS, CUFF PRESSER Date: 01/23/2023 Generated for Printing/Faxing/eTransmitting on: 0 07/23/2024 10:49 AM ELEVATOR REPAIRER HELPER
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
[2024-07-23 11:30] LABS: Strep Group A RT-PCR NOT DETECTED (Negative)
[2024-07-23 11:35] LABS: SARS-CoV-2 RNA PCR Positive (Negative)
[2024-07-23 11:36] LABS: Influenza A QL RT-PCR Negative (Negative); Influenza B QL RT-PCR Negative (Negative); RSV RNA, RT-PCR Negative (Negative)
[2024-07-23 11:48] VITALS: BP 121/79; PULSE 83; RESP 16; TEMP 37.1; O2SAT 99
== END 2024-07-23 12:02 | disposition home or self-care (01) ==
PROVIDERS: Emergency Provider Emergency Medicine
DX: U07.1 COVID-19 (principal)
CPT/HCPCS: 87637; 87651; 99283

== ENCOUNTER 2024-11-20 09:30 | Outpatient (CLI) | payer OTHER, SELFPAY ==
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
--- OUTSIDE RECORDS SUMMARY | 2024-11-20 09:34 | XMS_ITS | Data Portability ---
Author Organization [facility] [place] Address [address] [place] [address] Assessment Encounter Date Assessment Date Assessment LastModified by Organization Details LastModified Time 08/28/2024 08/28/2024 The patient and I disscussed the various causes of abnormal uterine bleeding, including polyps, fibroids, hyperplasia, atypia, anovulation, etc. We reviewed the typical evaluation with labs, pelvic US and possible endometrial biopsy. Briefly discussed the options available for treatment (depending on the results of evaluation) such as hormonal treatment (OCPs, progestins), Mirena, endometrial ablation, and surgery. We spent more than 30 minutes face to face. Annual gynecological exam performed. Patient will come back in a year unless there are new symptoms. [email or web address] Not available 08/28/2024 11:05:40 Plan of Treatment Reminders Order Date Submit Date Provider Last Modified By Organization Details Last Modified Time Details Appointments Robotic TL[facility] 2024 12:00P Eloise GORDON MD Not available Not available Not available SURG POST OP 2024 02:45P Elosie GORDON MD Not available Not available Not available Lab hsv-2 igg Ab, serum 2024 025 [facility] (Lab), [address], [place], [address], 11/18/2024 12:05:49 hbcab (hepatiti s B core Ab) igm, serum 2024 025 [facility] (Lab), [address], [place], [address], 11/18/2024 12:05:49 HBsAg (hepatiti s B surface Ag), serum 2024 025 [facility] (Lab), [address] [facility], [place], [address], 11/18/2024 12:05:48 hepatitis C virus Ab, serum 2024 025 [facility] (Lab), [address] [place], [address], 11/18/2024 12:05:47 HIV 1+2 AB + HIV 1 p24 Ag, qualitati ve immunoass ay, serum 2024 025 [facility] (Lab), [address], [place], [address], 11/18/2024 12:05:47 RPR (rapid plasma reagin), serum 2024 025 [facility] (Lab), [address], [place], [address], 11/18/2024 12:05:48 CT + NG + TV, RNA, unspecifi ed specimen 2024 025 [facility] (Lab), [address] [place], [address], 10/27/2024 08:48:20 culture, urine 2024 025 [facility], [address] [place], [address], 09/01/2024 03:11:12 urinalysi s, dipstick 2024 025 [email or web address] [place], [address], [address], [place], [address], 08/28/2024 11:11:57 pap, IG + HR HPV - HPV regardles s but if HPV is positive need subtyping 16,18/45a dd ct/gc/tri ch 2024 025 [facility] (Lab), [address] [place], [address], 09/03/2024 18:31:01 unlisted lab - 17-oh progester one, lc/MS/MS 2024 025 [facility] (Lab), [address], [place], [address], 09/12/2024 20:22:48 dhea-sulf ate, serum 2024 025 [facility] (Lab), [address] [place], [address], 09/12/2024 20:22:44 hormone panel, serum or plasma 2024 025 [facility] (Lab), [address], [place], [address], 09/12/2024 20:22:46 HbA1c (hemoglob in A1c), blood 2024 025 [facility] (Lab), [address] [place], [address], 09/12/2024 20:22:47 progester one, serum 2024 025 [facility] (Lab), [address] [place], [address], 09/12/2024 20:22:45 prolactin , serum 2024 025 [facility] (Lab), [address] [place], [address], 09/12/2024 20:22:45 shbg (sex hormone-b inding globulin) , serum 2024 025 [facility] (Lab), [address] [place], [address], 09/12/2024 20:22:47 testoster one free/test osterone total, ratio, serum 2024 025 [facility] (Lab), [address], [place], [address], 09/12/2024 20:22:47 TSH, serum or plasma 2024 025 [facility] (Lab), [address], [place], [address], 09/12/2024 20:22:46 Referral None recorded. Procedures None recorded. Surgeries robotic assisted hysterect layne with salpingec fernando (SURG) [address], [facility] [address], [place], [address], 10/11/2024 17:50:56 Imaging US, pelvis [address], [address], [place], [address], 08/31/2024 23:02:57 US, transvagi nal [address], [address], [place], [address], 08/31/2024 23:02:57 US, pelvis, complete 2024 025 [email or web address] Not available 09/06/2024 04:01:13 Medication Orders None recorded. Patient TargetsNo targets recorded. Patient InstructionsNo instructions recorded. Reason for Referral None Reported. Results Created Date Observation Date Name Description Value Unit Range Abnormal Flag Note LastModifiedBy Organization Detail LastModifiedTime 08/29/1908/28/2024 urina lysis , dipst ick Leukocytes - Not Available Randy gutierrez [address], [place], [address], 08/28/2024 10:55:58 08/29/1908/28/2024 urina lysis , dipst ick Nitrite - Not Available [place] [address], [place], [address], 08/28/2024 10:55:58 08/29/19 25 08/28/2024 urina lysis , dipst ick Urobilinogen - Not Available [facility] jacob [address], [place], [address], 08/28/2024 10:55:58 08/29/19 25 08/28/2024 urina lysis , dipst ick Protein trace Not Available [place] [address], [place], [address], 08/28/2024 10:55:58 08/29/19 25 08/28/2024 urina lysis , dipst ick pH 8 Not Available [place] [address], [place], [address], 08/28/2024 10:55:58 08/29/19 25 08/28/2024 urina lysis , dipst ick Specific Silt 1.000 Not Available [facility] godfrey [address], [place], [address], 08/28/2024 10:55:58 08/29/19 25 08/28/2024 urina lysis , dipst ick Ketone - Not Available [place] [address], [place], [address], 08/28/2024 10:55:58 08/29/19 25 08/28/2024 urina lysis , dipst ick Bilirubin - Not Available [facility] [address], [place], [address], 08/28/2024 10:55:58 08/29/19 25 08/28/2024 urina lysis , dipst ick Glucose - Not Available [place] [address], [place], [address], 08/28/2024 10:55:58 08/29/19 25 08/28/2024 urina lysis , dipst ick Appearance Clear Not Available [facility] [address], [place], [address], 08/28/2024 10:55:58 08/29/19 25 08/28/2024 urina lysis , dipst ick Color yellow Not Available [place] [address], [place], [address], 08/28/2024 10:55:58 08/31/19 25 08/30/2024 CULTU RE: URINE result report SEE RESULT S BELOW abnormal Test: Cultu re: Urine Speci men Sourc e: Urine - Clean Catch Speci men Type: Urine Speci men Date: 2024 0844 Resul t Date: 2024 0207 Resul t Statu s: Final resul t Abnor mal: Yes Resul jennifer Lab: [facility] [address] [facility] [address] Tel: CULTU RE ----- ----- ----- --- >100, 000 CFU/m l Strep tococ cus agala ctiae (Grou p B) (Abno rmal) Strep tococ cus agala ctiae (Beta strep Group B Strep ) remai ns unive rsall y susce ptibl e to penic illin , cefaz kristi and vanco mycin . If clind amyci n is being consi dered for intra partu m proph ylaxi s, pleas e conta ct the lab withi n 5 days. Not Available [facility] (Lab) [address], [place], [address], 09/01/2024 03:11:12 08/31/19 25 08/30/2024 IMAGE GUIDE D PAP AND HPV REGAR DLESS image guided Pap, HPV regardless of Pap result SEE RESULT S BELOW CASE REPOR T: Cytol ogy Gynec ologi lee ann Repor t Case: [id number] Autho leno jose a Provi betty: Mona Gordon MD Colle cted: 08/30 0840 Order ing Locat ion: [place] Patho log[facility] Recei prabhu: 08/31 1322 First Scree n: Mona Sullivan ret, CT Rescr een: Leatha sue, Cruzito maurer, CT Speci men: Evangelina lam Pap - Image d, Cervi x STATE MENT OF ADEQU ACY: Satis facto ry for evalu ation Trans forma tion zone compo nent absen t ----- ----- ----- ----- ----- ----- ----- ----- ----- ----- ----- ----- ----- ----- ----- ----- ----- ---- FINAL DIAGN OSIS: Negat london for Intra epith elial Lesio cullen or Saleem benton (NIL) . Trich raineona s hellen olivo. Elect imelda umanzor by Cruzito sue, CT on 2024 at 1728 CDT ----- ----- ----- ----- ----- ----- ----- ----- ----- ----- ----- ----- ----- ----- ----- ----- ----- ---- HPV RESUL TS: HPV mRNA E6/E7 : No HPV mRNA Detec ghislaine NOTE: This high risk HPV mRNA assay detec ts fourt een high- risk HPV types (16, 18, 31, 33, 35, 39, 45, 51, 52, 56, 58, 59, 66, 68) witho ut diffe renti ation . COMME NT: This speci men was revie wed by a Cytot echno logis t and/o r Patho logis t (as indic ated in this repor t) after evalu ation using the Thinp rep Imagi ng Syste m. CLINI LEE ANN INFOR MATIO N: Menst rual Statu s: LMP (if appli cable ): Clini lee ann Histo ry/Pr eviou s Pap: Type of Neopl chelo (if appli cable ): Signi fican t Clini lee ann Findi ngs: Other Histo ry: Hormo tutu (if appli cable ): PAP EDUCA NICK L NOTE: The Pap Test is a scree carole test with an inher ent false negat london rate. Liqui d-bas ed sampl ing may decre ase, but will not elimi karlo, false negat london resul ts. A negat london resul t does not precl ude the prese nce and/o r devel opmen t of disea se, since the prese nce of abnor mal cells in the sampl e depen ds on the locat ion of the lesio n and sampl ing techn ique. Tabby nued regul ar scree carole is the best metho d of cance r preve ntion . If repor ghislaine cytol ogic findi ng do not corre late with physi lee ann and/o r histo rical findi ngs, furth er inves tigat ion is recom ashley d, as clini yoselin villasenor nted. Not Available [facility] (Lab) [address], [place], [address], 09/03/2024 18:31:01 08/31/19 25 08/30/2024 CT/GC (HARVINDER) , THINP REP VIAL chlamydia trachomatis, PCR Positi ve negati ve abnormal Posit london: Prese nce of C. trach omati s (by HARVINDER) Chlam ydia trach omati s RNA detec ghislaine by PCR. Not Available [facility] (Lab) [address] [place], [address], 09/03/2024 18:31:02 08/31/19 25 08/30/2024 CT/GC (HARVINDER) , THINP REP VIAL neisseria gonorrhoeae, PCR Negati ve negati ve Not Available [facility] (Lab) [address] [place], [address], 09/03/2024 18:31:02 08/31/19 25 08/30/2024 TRICH OMONA S VAGIN JIM (RRNA ) trichomonas vaginalis ribosomal RNA (rrna) Positi ve negati ve abnormal Not Available [facility] (Lab) [address], [place], [address], 09/03/2024 18:31:02 09/01/19 25 08/31/2024 DHEA SULFA TE DHEA-sulfate 214 ug/dL Femal e Range s Age(y ) Range (ug/d L) 10-15 34-28 0 15-20 65-36 8 20-25 148-4 07 25-35 99-34 0 35-45 61-33 7 45-55 35-25 6 55-65 19-20 5 65-75 9-246 > 75 12-15 4 Not Available [facility] (Lab) [address], [place], [address], 09/12/2024 20:22:44 09/01/19 25 08/31/2024 PROLA CTIN prolactin, total 15.40 NG/mL 4.79-2 3.30 This assay was perfo rmed using [employer] ratio n reage nts and test kits. Value s obtai chata with other assay metho ds or kits canno t be used [facility] . Not Available [facility] (Lab) [address], [place], [address], 09/12/2024 20:22:45 09/01/19 25 08/31/2024 PROGE STERO NE progesterone 14.30 NG/mL This assay was perfo rmed using [employer] ratio n reage nts and test kits. Value s obtai chata with other assay metho ds or kits canno t be used inter macias eay . Femal e Proge stero ne Range s: Folli cular phase 0.06- 0.89 ng/mL Ovula tion phase 0.12- 12.00 ng/mL Lutea l phase 1.83- 23.90 ng/mL Postm enopa usal <0.05 -0.13 ng/mL Healt hy Pregn ant Women 1st Trime ster 11.0- 44.30 2nd Trime ster 25.40 -83.3 0 3rd Trime ster 58.70 -214. 00 Not Available [facility] (Lab) [address], [place], [address], 09/12/2024 20:22:45 09/01/19 25 08/31/2024 FSH, LH, ESTRA DIOL estradiol 158.0 pg/mL This assay was perfo rmed using [employer] ratio n reage nts and test kits. Value s obtai chata with other assay metho ds or kits canno t be used inter macias eably . Femal e Estra diol Range s: Folli cular phase 12.4- 233 pg/mL Ovula tion phase 41.0- 398 pg/mL Lutea l phase 22.3- 341 pg/mL Postm enopa usal <5-13 8 pg/mL Healt hy Pregn ant Women 1st Trime ster 154-3 243 pg/mL 2nd Trime ster 1561- 16634 pg/mL 3rd Trime ster 8525- >3000 0 pg/mL Not Available [facility] (Lab) [address], [place], [address], 09/12/2024 20:22:46 09/01/19 25 08/31/2024 FSH, LH, ESTRA DIOL FSH 3.2 mIU/m L This assay was perfo rmed using [employer] ratio n reage nts and test kits. Value s obtai chata with other assay metho ds or kits canno t be used inter macias eably . Femal es Folli cular : 3.5-1 2.5 mIU/m L Ovula tion: 4.7-2 1.5 mIU/m L Lutea l: 1.7-7 .7 mIU/m L Postm enopa use: 25.8- 134.8 mIU/m L Not Available [facility] (Lab) [address] [place], [address], 09/12/2024 20:22:46 09/01/19 25 08/31/2024 FSH, LH, ESTRA DIOL LH 3.1 mIU/m L This assay was perfo rmed using [employer] ratio n reage nts and test kits. Value s obtai chata with other assay metho ds or kits canno t be used inter macias eably . Femal es Mid-F ollic ular: 2.4-1 2.6 mIU/m L Mid-C ycle: 14.0- 95.6 mIU/m L Mid-L uteal : 1.0-1 1.4 mIU/m L Postm enopa use: 7.7-5 8.5 mIU/m L Not Available [facility] (Lab) [address] [facility] [address], [place], [address], 09/12/2024 20:22:46 09/01/19 25 08/31/2024 TSH, REFLE X FREE T4 TSH 1.70 uIU/m L 0.30-5 .33 Not Available [facility] (Lab) [address] [place], [address], 09/12/2024 20:22:46 09/01/19 25 08/31/2024 HUMAN SEX HORMO NE CALLI NG GLOBU MAXIMILIAN sex hormone binding globulin 82.4 nmole s/L 18.2-1 35.5 Not Available [facility] (Lab) [address] [place], [address], 09/12/2024 20:22:47 09/01/19 25 08/31/2024 HEMOG LOBIN A1C hemoglobin A1C 5.6 % 4.0-5. 6 The Ameri can Diabe praneeth Assoc iatio n recom mends that a prima ry goal of thera py jamirul d be a HBA1C of < 7% and that physi cians shoul d reeva luate the treat ment regim en in patie nts with HBA1C value s consi stent ly > 8%. <5.7% Cindy l 5.7 - 6.4% Incre ased risk for diabe praneeth >=6.5 % Diagn ostic of diabe praneeth <7.0% Goal of thera py >8.0% Henry mcgee Not Available [facility] (Lab) [address] [facility] [address], [place], [address], 09/12/2024 20:22:47 09/01/19 25 08/31/2024 TESTO STERO NE, FREE( DIALY SIS) AND TOTAL (LC/M S/MS) testosterone , total 32 NG/dL 2-45 For addit ional infor jessica bowling e refer to http: //[facility] harjit berman.que stdia gnost ics.c om/fa q/ Total Testo stero neLCM SMSFA Q165 (This link is being provi ded for infor stef gallagher/ educa nick l purpo ses only. ) This test was devel oped and its teodoro tical perfo rmanc e randy cteri stics have been deter mined by [employer] [place], [place]. It has not been clear ed or appro prabhu by the U.S. Food and Drug Admin istra tion. This assay has been valid ated pursu ant to the CLIA regul ation s and is used for clini lee ann purpo ses. Not Available [facility] (Lab) [address], [place], [address], 09/12/2024 20:22:47 09/01/19 25 08/31/2024 TESTO STERO NE, FREE( DIALY SIS) AND TOTAL (LC/M S/MS) testosterone , free 3.9 pg/mL 0.1-6. 4 This test was devel oped and its teodoro tical perfo rmanc e randy cteri stics have been deter mined by [employer] [place], [place]. It has not been clear ed or appro prabhu by the U.S. Food and Drug Admin istra tion. This assay has been valid ated pursu ant to the CLIA regul ation s and is used for clini lee ann purpo ses. Perfo rming Organ izati on Infor matio n: Site ID: [id number] Name: [employer] [address] [facility] [address]i tute Addre ss: [id number] [place], [place] Direc tor: Aaliyah Shaffer MD PhD Not Available [facility] (Lab) [address], [place], [address], 09/12/2024 20:22:47 09/01/19 25 08/31/2024 17-OH PROGE STERO NE 17-hydroxypr ogesterone, lc/MS/MS 203 NG/dL Adult Femal e Refer ence Range s for 17-Hy droxy proge stero ne: Pre-M enopa usal Mid Folli cular : 23-10 2 ng/dL Pre-M enopa usal Surge : 67-34 9 ng/dL Pre-M enopa usal Mid Lutea l: 139-4 31 ng/dL Postm enopa usal Phase : < or = 45 ng/dL Pregn austyn: First Trime ster: 78-45 7 ng/dL Secon d Trime ster: 90-35 7 ng/dL Third Trime ster: 144-5 78 ng/dL This test was devel oped and its teodoro tical perfo rmanc e randy cteri stics have been deter mined by [facility]. It has not been clear ed or appro prabhu by the FDA. This assay has been valid ated pursu ant to the CLIA regul ation s and is used for clini lee ann purpo ses. Perfo rming Organ izati on Infor matio n: Site ID: [id number] Name: [facility] [address] , Addre ss: [id number] [place] [address] Direc tor: Sugey matt MD,Ph D,JAISON Not Available [facility] (Lab) [address], [place], [address], 09/12/2024 20:22:48 10/26/19 25 10/25/2024 CT/GC AND TRICH OMONA S VAGIN JIM (RRNA ), URINE chlamydia trachomatis, PCR Negati ve negati ve Not Available [facility] (Lab) [address], [place], [address], 10/27/2024 08:48:20 10/26/19 25 10/25/2024 CT/GC AND TRICH OMONA S VAGIN JIM (RRNA ), URINE neisseria gonorrhoeae, PCR Negati ve negati ve Not Available [facility] (Lab) [address], [place], [address], 10/27/2024 08:48:20 10/26/19 25 10/25/2024 CT/GC AND TRICH OMONA S VAGIN JIM (RRNA ), URINE trichomonas vaginalis ribosomal RNA (rrna) Negati ve negati ve Not Available [facility] (Lab) [address], [place], [address], 10/27/2024 08:48:20 09/01/19 25 08/31/2024 US, pelvi s No observ ation record ed. [email or web address], [place], [address], 08/31/2024 18:15:55 09/01/19 25 08/31/2024 US, trans vagin al No observ ation record ed. [email or web address] [place] [address], [place], [address], 08/31/2024 18:16:06 09/01/19 25 08/31/2024 US, pelvi s No observ ation record ed. [email or web address] [address], [place], [address], 08/31/2024 22:24:14 Result Notes None recorded. Procedures Surgical History Date Name Laterality Status Provider Name and Address Organization Details Recorded Time 5 Date of Last Pap Smear completed Jennifer Swartz [facility] 09/18/2024 10:16:35 1 Ovarian Cystectomy completed [facility] 08/28/2024 10:42:42 5 Caesarean Section completed [facility] 08/28/2024 10:41:43 5 Tubal Ligation completed [facility] 08/28/2024 10:42:16 3 Caesarean Section completed [facility] 08/28/2024 10:41:29 Imaging Results None recorded. Procedure Notes None recorded. Medical Equipment None Reported. Allergies Allergen ID Allergen Name Allergen Category Reaction Reaction Severity Criticality Documentation Date Start Date Code Code System Note Provider Name and Address Organization Details Recorded Time 55367 Product containin g penicilli n (product) medicatio n Not available Not available Not available 08/28/2024 01476 8001 SNOMED [facility] 10:33:31 Medications Name Sig Start Date Stop Date Status Note LastModified by Organization Details LastModified Time doxycycline hyclate 100 mg capsule TAKE 1 CAPSULE BY MOUTH EVERY 12 HOURS FOR 7 DAYS 10/23 completed Not Available Not Available Not Available prazosin 1 mg capsule TAKE 1 CAPSULE BY MOUTH EVERY NIGHT AT BEDTIME 08/28 completed Not Available Not Available Not Available prednisone 20 mg tablet TAKE 1 TABLET BY MOUTH EVERY DAY FOR 3 DAYS 08/28 completed Not Available Not Available Not Available Zithromax Z-Brant 250 mg tablet TAKE 2 TABLETS (500 MG) BY ORAL ROUTE ONCE DAILY FOR 1 DAY THEN 1 TABLET (250 MG) BY ORAL ROUTE ONCE DAILY FOR 4 DAYS 2024 active Not Available Not Available Not Avai lable metronidazol e 500 mg tablet TAKE 1 TABLET BY MOUTH EVERY 12 HOURS FOR 7 DAYS 10/23 completed Not Available Not Available Not Available ciprofloxaci n 500 mg tablet TAKE 1 TABLET BY MOUTH TWICE A DAY FOR 7 DAYS 08/28 completed Not Available Not Available Not Available sulfamethoxa zole 800 mg-trimethop rim 160 mg tablet TAKE 1 TABLET BY MOUTH EVERY 12 HOURS FOR 7 DAYS 09/18 completed Not Available Not Available Not Available tramadol 50 mg tablet 50 MG ORALLY EVERY 6 HOURS NEEDED FOR PAIN 08/28 completed Not Available Not Available Not Available gabapentin 100 mg capsule TAKE 1 CAPSULE BY MOUTH THREE TIMES A DAY 08/28 completed Not Available Not Available Not Available ondansetron 4 mg disintegrati ng tablet 4 MG ORALLY EVERY 8 HOURS 08/28 completed Not Available Not Available Not Available Paxlovid 300 mg (150 mg x 2)-100 mg tablets in a dose pack TAKE 3 TABLETS BY MOUTH TWICE A DAY 5 DAYS 08/28 completed Not Available Not Available Not Available Vitals Date Recorded Body weight Body mass index (BMI) Body height Systolic blood pressure Diastolic blood pressure Provider Name and Address Organization Details Last Updated DateTime 08/28/2024 517087.2 g 35.6 kg/m2 167.64 cm 123 mm[Hg] 80 mm[Hg] [facility] 5 10:29:53 Date Recorded Body height Body mass index (BMI) Body weight Systolic blood pressure Diastolic blood pressure Provider Name and Address Organization Details Last Updated DateTime 09/18/2024 167.64 cm 35.4 kg/m2 91714.45 g 127 mm[Hg] 84 mm[Hg] [facility] 5 10:20:50 Date Recorded Body height Body mass index (BMI) Body weight Systolic blood pressure Diastolic blood pressure Provider Name and Address Organization Details Last Updated DateTime 10/23/2024 167.64 cm 35.5 kg/m2 10241.32 g 116 mm[Hg] 73 mm[Hg] Marly Marte [facility] 5 11:25:32 Date Recorded Body height Body mass index (BMI) Body weight Systolic blood pressure Diastolic blood pressure Provider Name and Address Organization Details Last Updated DateTime 11/17/2024 167.64 cm 36.3 kg/m2 980218.2 8 g 130 mm[Hg] 85 mm[Hg] Deanna Erwin [facility] 5 16:08:03 Social History Question Answer Notes LastModified by Organizat ion Details LastModified Time Tobacco Smoking Status Current Every Day Smoker cigarettes Jennifer Swartz [facility] 08/28/2024 10:40:00 Are You Blind Or Do You Have Difficulty Seeing? Yes [email or web address] Information not available 08/28/2024 What Is Your Level Of Caffeine Consumption? Heavy [email or web address] Information not available 08/28/2024 In The 14 Days Before Symptom Onset, Have You Had Close Contact With A Laboratory-confir med COVID-19 While That Case Was Ill? No [email or web address] Information not available 08/28/2024 In The 14 Days Before Symptom Onset, Have You Had Close Contact With A Person Who Is Under Investigation For COVID-19 While That Person Was Ill? No [email or web address] Information not available 08/28/2024 Have You Been To An Area Known To Be High Risk For COVID-19? No [email or web address] Information not available 08/28/2024 Are You Deaf Or Do You Have Serious Difficulty Hearing? No [email or web address] Information not available 08/28/2024 What Type Of Diet Are You Following? REGULAR [email or web address] Information not available 08/28/2024 What Is The Highest Grade Or Level Of School You Have Completed Or The Highest Degree You Have Received? [id number] [email or web address] Information not available 08/28/2024 Are There Any Guns Present In Your Home? No [email or web address] Information not available 08/28/2024 Do You Use Protection During Sex? No [email or web address] Information not available 08/28/2024 Do You Use Your Seat Belt Or Car Seat Routinely? Yes [email or web address] Information not available 08/28/2024 Are You Sexually Active? Yes Information not available 08/28/2024 Do You Have Smoke And Carbon Monoxide Detectors In Your Home? Yes [email or web address] Information not available 08/28/2024 At What Age Did You Start Smoking Tobacco? 16 Information not available 09/18/2024 How Much Tobacco Do You Smoke? 0.5 PPD Information not available 09/18/2024 Do You Use Sunscreen Routinely? Yes [email or web address] Information not available 08/28/2024 Have You Used IV Drugs? No [email or web address] Information not available 09/18/2024 Do You Have Difficulty Walking Or Climbing Stairs? No [email or web address] Information not available 08/28/2024 Sex: Unknown Functional Status Question Answer Note LastModified by Organizat ion Details LastModified Time Do you use any illicit or recreational drugs? No [email or web address] Information not available 09/18/2024 What is your level of alcohol consumption? None Information not available 08/28/2024 Are you currently employed? No Information not available 08/28/2024 Are you able to walk? YESWOREST [email or web address] Information not available 08/28/2024 Are you able to care for yourself? Yes [email or web address] Information n ot available 08/28/2024 Do you have difficulty dressing or bathing? No [email or web address] Information not available 08/28/2024 What is your exercise level? None [email or web address] Information not available 08/28/2024 Mental Status Question Answer Note LastModified by Organization D etails LastModified Time Do you feel stressed (tense, restless, nervous, or anxious, or unable to sleep at night)? [id number] [email or web address] Information not available 08/28/2024 Family History Relationship Description Onset Age of this Age Resolved Age Notes LastModified by Organization Details LastModified Time Mother Anemia [email or web address] Not available 08/28/2024 10:39:09 Mother Asthma Not available 08/28/2024 10:39:16 Mother Seizure disorder [email or web address] Not available 11/07 15:10:11 Sister Anemia [email or web address] Not available 08/28/2024 10:39:09 Father Diabetes mellitus Not available 2024 10:39:26 Father Hypertensive disorder Not available 2024 10:39:34 Medical History Condition Response Allergies (Food, seasonal, environmental ) N Other N Drug/Latex Allergies/Reactions Y Blood Transfusion N Breast Cancer N Dermatologic Disorders N Lung Disease N Defects or Inherited Disease N Breast Problem N Gestational Diabetes N Hematologic disorders N Anesthesia Complications N History of STI Y Deep Vein Thrombosis N Polycystic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
== END 2024-11-20 09:31 | disposition home or self-care (01) ==
LOC: ANHLAB 09:32
PROVIDERS: Visit Provider Obstetrics & Gynecology
DX: Z01.818 Encounter for other preprocedural examination (principal); N85.00 Endometrial hyperplasia, unspecified
CPT/HCPCS: 36415; 86850; 86900; 86901

== ENCOUNTER 2024-11-25 01:50 | Day surgery (SDC) | payer OTHER, SELFPAY ==
--- NOTE | 2024-11-17 18:28 | PC.NURSE ---
Report to the Outpatient Waiting Room, entrance under the green pavilion located off [facility], at time 1000 on date 11/25/24. Planned Procedure Time: 1200.? Time changes happen often and if your time is changed the preop area will call you the afternoon before. - You and your visitor will be asked to self-screen and do not enter if you have any COVID symptoms. Please call surgeon if you need to reschedule. - A mask is optional within the hospital at this time. Patients may have clear liquids (water, carbonated beverages, clear teas, apple juice) until 3 hours prior to surgery with a maximum of 20 ounces. - No food from midnight until time of surgery and no smoking, or chewing tobacco (or any form of nicotine). No chewing gum, candy or mints. - Infants may have breast milk until 4 hours before surgery, formula 6 hours prior to surgery. - Children will be allowed to drink immediately following surgery.? If applicable, please bring a bottle or sippy cup to assist with drinking. Juice, water, soda, and popsicles are readily available.? For infants on formula, please bring formula the day of surgery.? Pacifiers are allowed. Take only the following medications with a SIP of water on the morning of surgery: ANTIBIOTIC DO NOT STOP ANY OF YOUR OTHER PRESCRIPTION MEDICATIONS PRIOR TO SURGERY EXCEPT THE FOLLOWING Hold all vitamins and supplements for 3 days per anesthesiologist. Medications to discontinue per physician N/A Date to take last dose N/A Please no make-up, nail mauritian, hairspray, perfume, deodorant, or body powder the day of surgery.? No jewelry (including any body piercings) or valuables the day of surgery, leave them at home.? Please take a shower or bath the night before, or the morning of, surgery with an antibacterial soap.? Wear comfortable, loose fitting clothing.? Children are encouraged to wear pajamas. - Jewelry must be removed prior to entering the operating room.? Rings and piercings that are not removed may be cut off. - The hospital will not accept responsibility for valuables.? - Please leave all valuables, including medications, at home the day of surgery. If you are going home after surgery, a licensed bulk delivery driver must drive you home.? - NO public transportation without another adult if you receive anesthesia. - We recommend that an adult stay with you for 24 hours following discharge. - We also recommend that you do not drive, make important decision, drink alcoholic beverages, or take any drugs that were not prescribed by your health care provider for at least 24 hours after your discharge time. For Pediatric surgeries, we recommend two adults accompany the child home. Follow any additional instructions given to you from your surgeon. Telephone instructions given to Patient- Yudith Larios and asked if any additional questions and then verbalized understanding. Patient advised to call surgeon office or pre surgery nurse liaison [phone] if any additional questions.
[2024-11-17 18:32] VITALS: BMI 36.3
[2024-11-25] VITALS (8 sets, daily range): BP systolic 112–127; BP diastolic 52–80; PULSE 64–89; RESP 9–19; TEMP 36.2–36.7; O2SAT 94–100
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
--- OUTSIDE RECORDS SUMMARY | 2024-11-25 01:53 | XMS_ITS | Data Portability ---
Author Organization [facility] [place] [place] [facility] Address [address] [place] [address] Assessment Encounter Date Assessment Date Assessment LastModified [...] Not available SURG POST OP 2024 02:45P Eloise GORDON MD Not available Not available Not available Lab hsv-2 igg Ab, serum 2024 025 [facility] (Lab), [address], [place], [address], 11/18/2024 12:05:49 hbcab (hepatiti s B core Ab) igm, serum 2024 025 [facility] (Lab), [address], [place], [address], 11/18/2024 12:05:49 HBsAg (hepatiti s B surface Ag), serum 2024 025 [facility] (Lab), [address] [facility], [place], [address], 11/18/2024 12:05:48 hepatitis C virus Ab, serum 2024 025 [facility] (Lab), [address] [place], [address], 11/18/2024 12:05:47 HIV 1+2 AB + HIV 1 p24 Ag, qualitati ve immunoass ay, serum 2024 025 [facility] (Lab), [address] [facility] [address], [place], [address], 11/18/2024 12:05:47 RPR (rapid plasma reagin), serum 2024 025 [facility] (Lab), [address] [facility], [place], [address], 11/18/2024 12:05:48 CT + NG + TV, RNA, unspecifi ed specimen 2024 025 [facility] (Lab), [address] [place], [address], 10/27/2024 08:48:20 culture, urine [address] [facility], [address] [place], [address], 09/01/2024 03:11:12 urinalysi s, dipstick 2024 025 [email or web address] [facility], [address], [place], [address], 08/28/2024 11:11:57 pap, IG + HR HPV - HPV regardles s but if HPV is positive need subtyping 16,18/45a dd ct/gc/tri ch 2024 025 [facility] (Lab), [address] [place], [address], 09/03/2024 18:31:01 unlisted lab - 17-oh progester one, lc/MS/MS 2024 025 [facility] (Lab), [address], [place], [address], 09/12/2024 20:22:48 dhea-sulf ate, serum 2024 025 [facility] (Lab), [address] [place], [address], 09/12/2024 20:22:44 hormone panel, serum or plasma 2024 025 [facility] (Lab), [address], [place], [address], 09/12/2024 20:22:46 HbA1c (hemoglob in A1c), blood 2024 025 [facility] (Lab), [address] [place], [address], 09/12/2024 20:22:47 progester one, serum 2024 025 [facility] (Lab), [address] [place], [address], 09/12/2024 20:22:45 prolactin , serum 2024 025 [facility] (Lab), [address] [place], [address], 09/12/2024 20:22:45 shbg (sex hormone-b inding globulin) , serum 2024 025 [facility] (Lab), [address] [place], [address], 09/12/2024 20:22:47 testoster one free/test osterone total, ratio, serum 2024 025 [facility] (Lab), [address] [facility] [address], [place], [address], 09/12/2024 20:22:47 TSH, serum or plasma 2024 025 [facility] (Lab), [address] [facility] [address], [place], [address], 09/12/2024 20:22:46 Referral None recorded. Procedures None recorded. Surgeries robotic assisted hysterect layne with salpingec fernando (SURG) [address], [facility] [address], [place], [address], 10/11/2024 17:50:56 Imaging US, pelvis [address], [address], [address], [place], [address], 08/31/2024 23:02:57 US, transvagi nal [address], [address], [address], [place], [address], 08/31/2024 23:02:57 US, pelvis, complete 2024 025 ARTEM Not available 09/06/2024 04:01:13 Medication Orders None recorded. Patient TargetsNo targets recorded. Patient InstructionsNo instructions recorded. Reason for Referral None Reported. Results Created Date Observation Date Name Description Value Unit Range Abnormal Flag Note LastModifiedBy Organization Detail LastModifiedTime 08/29/1908/28/2024 urina lysis , dipst ick Leukocytes - Not Available Randy gutierrez [address], [place], [address], 08/28/2024 10:55:58 08/29/1908/28/2024 urina lysis , dipst ick Nitrite - Not Available [facility] [address], [place], [address], 08/28/2024 10:55:58 08/29/19 25 08/28/2024 urina lysis , dipst ick Urobilinogen - Not Available [facility] jacob [address], [place], [address], 08/28/2024 10:55:58 08/29/19 25 08/28/2024 urina lysis , dipst ick Protein trace Not Available [facility] [address], [place], [address], 08/28/2024 10:55:58 08/29/19 25 08/28/2024 urina lysis , dipst ick pH 8 Not Available [facility] [address], [place], [address], 08/28/2024 10:55:58 08/29/19 25 08/28/2024 urina lysis , dipst ick Specific Zeigler 1.[address] [facility] godfrey [address], [place], [address], 08/28/2024 10:55:58 08/29/19 25 08/28/2024 urina lysis , dipst ick Ketone - Not Available [facility] [address], [place], [address], 08/28/2024 10:55:58 08/29/19 25 08/28/2024 urina lysis , dipst ick Bilirubin - Not Available [facility] gannon [address], [place], [address], 08/28/2024 10:55:58 08/29/19 25 08/28/2024 urina lysis , dipst ick Glucose - Not Available [facility] [address], [place], [address], 08/28/2024 10:55:58 08/29/19 25 08/28/2024 urina lysis , dipst ick Appearance Clear Not Available [facility] [address], [place], [address], 08/28/2024 10:55:58 08/29/19 25 08/28/2024 urina lysis , dipst ick Color yellow Not Available [facility] [address], [place], [address], 08/28/2024 10:55:58 08/31/19 25 08/30/2024 CULTU RE: URINE result report SEE RESULT S BELOW abnormal Test: Cultu re: Urine Speci men Sourc e: Urine - Clean Catch Speci men Type: Urine Speci men Date: 2024 0844 Resul t Date: 2024 0207 Resul t Statu s: Final resul t Abnor mal: Yes Resul jennifer Lab: [facility] [address] [facility] [address] Tel: CULTU RE ----- ----- ----- --- [...] lab withi n 5 days. Not Available [facility] (Lab) [address], [place], [address], 09/01/2024 03:11:12 08/31/19 25 08/30/2024 IMAGE GUIDE [...] as clini yoselin villasenor nted. Not Available [facility] (Lab) [address], [place], [address], 09/03/2024 18:31:01 08/31/19 25 08/30/2024 CT/GC (HARVINDER) , THINP REP VIAL chlamydia trachomatis, PCR Positi ve negati ve abnormal Posit london: Prese nce of C. trach omati s (by HARVINDER) Chlam ydia trach omati s RNA detec ghislaine by PCR. Not Available [facility] (Lab) [address] [place], [address], 09/03/2024 18:31:02 08/31/19 25 08/30/2024 CT/GC (HARVINDER) , THINP REP VIAL neisseria gonorrhoeae, PCR Negati ve negati ve Not Available [facility] (Lab) [address] [place], [address], 09/03/2024 18:31:02 08/31/19 25 08/30/2024 TRICH OMONA S VAGIN JIM (RRNA ) trichomonas vaginalis ribosomal RNA (rrna) Positi ve negati ve abnormal Not Available [facility] (Lab) [address] [facility], [place], [address], 09/03/2024 18:31:02 09/01/19 25 08/31/2024 DHEA SULFA TE DHEA-sulfate 214 ug/dL Femal e Range s Age(y ) Range (ug/d L) 10-15 34-28 0 15-20 65-36 8 20-25 148-4 07 25-35 99-34 0 35-45 61-33 7 45-55 35-25 6 55-65 19-20 5 65-75 9-246 > 75 12-15 4 Not Available [facility] (Lab) [address] [facility], [place], [address], 09/12/2024 20:22:44 09/01/19 25 08/31/2024 PROLA CTIN prolactin, total 15.40 NG/mL 4.79-2 3.30 This assay was perfo rmed using [facility] [facility] [facility] [employer] ratio n reage nts and test kits. Value s obtai chata with other assay metho ds or kits canno t be used inter channing home . Not Available [facility] (Lab) [address] [facility] [address], [place], [address], 09/12/2024 20:22:45 09/01/19 25 08/31/2024 PROGE STERO [...] Trime ster 58.70 -214. 00 Not Available [facility] (Lab) [address] [facility] [address] [facility], [place], [address], 09/12/2024 20:22:45 09/01/19 25 08/31/2024 FSH, LH, [...] 154-3 243 pg/mL 2nd Trime ster 1561- 44689 pg/mL 3rd Trime ster 8525- >3000 0 pg/mL Not Available [facility] (Lab) [address] [facility] [address], [place], [address], 09/12/2024 20:22:46 09/01/19 25 08/31/2024 FSH, LH, [...] use: 25.8- 134.8 mIU/m L Not Available [facility] (Lab) [address] [place], [address], 09/12/2024 20:22:46 09/01/19 25 08/31/2024 FSH, LH, [...] use: 7.7-5 8.5 mIU/m L Not Available [facility] (Lab) [address] [facility], [place], [address], 09/12/2024 20:22:46 09/01/19 25 08/31/2024 TSH, REFLE X FREE T4 TSH 1.70 uIU/m L 0.30-5 .33 Not Available [facility] (Lab) [address] [place], [address], 09/12/2024 20:22:46 09/01/19 25 08/31/2024 HUMAN SEX HORMO NE CALLI NG GLOBU MAXIMILIAN sex hormone binding globulin 82.4 nmole s/L 18.2-1 35.5 Not Available [facility] (Lab) [address] [place], [address], 09/12/2024 20:22:47 09/01/19 25 08/31/2024 HEMOG LOBIN [...] thera py >8.0% Henry mcgee Not Available [facility] (Lab) [address] [facility] [address], [place], [address], 09/12/2024 20:22:47 09/01/19 25 08/31/2024 TESTO STERO NE, FREE( DIALY SIS) AND TOTAL (LC/M S/MS) testosterone , total 32 NG/dL 2-45 For addit ional infor jessica bowling e refer to http: //[facility] harjit berman.que stdia gnost ics.c om/fa q/ Total Testo stero neLCM SMSFA Q165 (This link is being provi ded for infor stef gallagher/ educa nick l purpo ses only. ) This test was devel oped and its teodoro tical perfo rmanc e randy cteri stics have been deter mined by [employer] [facility] [place], [place]. It has not been clear ed or appro prabhu by the U.S. Food and Drug Admin istra tion. This assay has been valid ated pursu ant to the CLIA regul ation s and is used for clini lee ann purpo ses. Not Available [facility] (Lab) [address] [facility] [address], [place], [address], 09/12/2024 20:22:47 09/01/19 25 08/31/2024 TESTO STERO NE, FREE( DIALY SIS) AND TOTAL (LC/M S/MS) testosterone , free 3.9 pg/mL 0.1-6. 4 This test was devel oped and its teodoro tical perfo rmanc e randy cteri stics have been deter mined by [employer] [facility] [place]. It has not been clear ed or appro prabhu by the U.S. Food and Drug Admin istra tion. This assay has been valid ated pursu ant to the CLIA regul ation s and is used for clini lee ann purpo ses. Perfo rming Organ izati on Infor matio n: Site ID: AMD Name: [employer] [facility] Brendon ls Insti tute Addre ss: [id number] [place], [place] Direc tor: Aaliyah Shaffer MD PhD Not Available [facility] (Lab) [address] [facility] [address] [facility], [place], [address], 09/12/2024 20:22:47 09/01/19 25 08/31/2024 17-OH PROGE [...] ID: EZ Name: [facility] [place] , Addre ss: [id number] [place] [address] Direc tor: Sugey matt MD,Ph D,JAISON Not Available [facility] (Lab) [address] [facility] [address], [place], [address], 09/12/2024 20:22:48 10/26/19 25 10/25/2024 CT/GC AND TRICH OMONA S VAGIN JIM (RRNA ), URINE chlamydia trachomatis, PCR Negati ve negati ve Not Available [facility] (Lab) [address] [facility] [address], [place], [address], 10/27/2024 08:48:20 10/26/19 25 10/25/2024 CT/GC AND TRICH OMONA S VAGIN JIM (RRNA ), URINE neisseria gonorrhoeae, PCR Negati ve negati ve Not Available [facility] (Lab) [address] [facility] [address], [place], [address], 10/27/2024 08:48:20 10/26/19 25 10/25/2024 CT/GC AND TRICH OMONA S VAGIN JIM (RRNA ), URINE trichomonas vaginalis ribosomal RNA (rrna) Negati ve negati ve Not Available [facility] (Lab) [address] [facility] [address] [facility], [place], [address], 10/27/2024 08:48:20 11/18/19 25 11/17/2024 HIV 1/2 ANTIG EN/AN TIBOD Y, REFLE X CONFI RMATI ON HIV antigen/anti body Nonrea ctive nonrea ctive HIV-1 antig en and HIV-1 /HIV- 2 antib odies were not detec ghislaine. No labor atory evide nce of HIV infec tion. Not Available [facility] (Lab) [address] [facility], [place], [address], 11/18/2024 12:05:47 11/18/19 25 11/17/2024 HEPAT ITIS C ANTIB FREDO SCREE N, REFLE X TO CONFI RMATI ON hepatitis C antibody Non-re active non-re active Antib odies to HCV Not Detec ghislaine, does not exclu de the possi bilit y of expos ure to HCV. Not Available [facility] (Lab) [address] [place], [address], 11/18/2024 12:05:47 11/18/19 25 11/17/2024 HEPAT ITIS B SURFA CE ANTIG EN hepatitis B surface antigen Non-re active non-re active This assay was perfo rmed using [employer] [facility] ratio n reage nts and test kits. Value s obtai chata with other assay metho ds or kits canno t be used inter macias eably . Not Available [facility] (Lab) [address] [facility] [address], [place], [address], 11/18/2024 12:05:48 11/18/1911/17/2024 RPR SCREE N, REFLE X TITER /CONF IRMAT ION RPR qualitative Nonrea ctive nonrea ctive Not Available [facility] (Lab) [address] [facility] [address], [place], [address], 11/18/2024 12:05:48 11/18/19 25 11/17/2024 HEPAT ITIS B CORE, IGM hepatitis B core IgM antibody Non-re active non-re active Antib odies to Hepat itis B Core IgM not detec ghislaine. Does not exclu de the possi bilit y of expos ure to or infec tion with HBV. Corre late with other Hepat itis B serol ogies . Not Available [facility] (Lab) [address] [facility] [address] [facility], [place], [address], 11/18/2024 12:05:49 11/18/19 25 11/17/2024 HERPE S SIMPL EX VIRUS TYPE 2 SPECI FIC AB, IGG herpes simplex virus 2 IgG Positi ve negati ve abnormal Not Available [facility] (Lab) [address] [facility] [address], [place], [address], 11/18/2024 12:05:49 11/18/19 25 11/17/2024 HERPE S SIMPL EX VIRUS TYPE 2 SPECI FIC AB, IGG herpes simples virus 2 IgG, quant >8.0 ai 0.0-0. 8 high Not Available [facility] (Lab) [address] [place], [address], 11/18/2024 12:05:49 09/01/19 25 08/31/2024 US, zayra s No observ ation record ed. [email or web address] [facility] [address], [place], [address], 08/31/2024 18:15:55 09/01/1908/31/2024 US, trans vagin al No observ ation record ed. [email or web address] [facility] [address], [place], [address], 08/31/2024 18:16:06 09/01/19 25 08/31/2024 US, pelvi s No observ ation record ed. [email or web address] [address], [place], [address], 08/31/2024 22:24:14 Result Notes None recorded. Procedures Surgical History Date Name Laterality Status Provider Name and Address Organization Details Recorded Time 5 Date of Last Pap Smear completed [facility] 09/18/2024 10:16:35 1 Ovarian Cystectomy completed [facility] 08/28/2024 10:42:42 5 Caesarean Section completed [facility] 08/28/2024 10:41:43 5 Tubal L[address] completed [facility] 08/28/2024 10:42:16 3 Caesarean Section completed [facility] 08/28/2024 10:41:29 Imaging Results None recorded. Procedure Notes None recorded. Medical Equipment None Reported. Allergies Allergen ID Allergen Name Allergen Category Reaction Reaction Severity Criticality Documentation Date Start Date Code Code System Note Provider Name and Address Organization Details Recorded Time 62753 Product containin g penicilli n (product) medicatio n Not available Not available Not available 08/28/2024 05841 8001 SNOMED [facility] 5 10:33:31 Medications Name Sig Start Date Stop Date Status Note LastModified by Organization Details LastModified Time doxycycline hyclate 100 mg capsule TAKE 1 CAPSULE BY MOUTH EVERY 12 HOURS FOR 7 DAYS 10/23 completed Not Available Not Available Not Available azithromyci n 250 mg tablet TAKE 2 TABLETS BY MOUTH TODAY, THEN TAKE 1 TABLET DAILY FOR 4 DAYS DIRECTED active Not Available Not Available No t Available prazosin 1 mg capsule TAKE 1 CAPSULE BY MOUTH EVERY NIGHT AT BEDTIME 08/28 completed Not Available Not Available Not Available prednisone 20 mg tablet TAKE 1 TABLET BY MOUTH EVERY DAY FOR 3 DAYS 08/28 completed Not Available Not Available Not Available metronidazo le 500 mg tablet TAKE 1 TABLET BY MOUTH EVERY 12 HOURS FOR 7 DAYS 10/23 completed Not Available Not Available Not Available ciprofloxac in 500 mg tablet TAKE 1 TABLET BY MOUTH TWICE A DAY FOR 7 DAYS 08/28 completed Not Available Not Available Not Available sulfamethox azole 800 mg-trimetho prim 160 mg tablet TAKE 1 TABLET BY [...] Not Available Not Available ondansetron 4 mg disintegrat ing tablet 4 MG ORALLY EVERY 8 HOURS [...] Address Organization Details Last Updated DateTime 08/28/2024 648558.2 g 35.6 kg/m2 167.64 cm 123 mm[Hg] 80 mm[Hg] Jennifer Swartz [facility] 10:29:53 Date Recorded Body height Body mass index (BMI) Body weight Systolic blood pressure Diastolic blood pressure Provider Name and Address Organization Details Last Updated DateTime 09/18/2024 167.64 cm 35.4 kg/m2 27188.45 g 127 mm[Hg] 84 mm[Hg] Jennifer Swartz [facility] 5 10:20:50 Date Recorded Body height Body mass index (BMI) Body weight Systolic blood pressure Diastolic blood pressure Provider Name and Address Organization Details Last Updated DateTime 10/23/2024 167.64 cm 35.5 kg/m2 48088.32 g 116 mm[Hg] 73 mm[Hg] Marly Marte [facility] 11:25:32 Date Recorded Body height Body mass index (BMI) Body weight Systolic blood pressure Diastolic blood pressure Provider Name and Address Organization Details Last Updated DateTime 11/17/2024 167.64 cm 36.3 kg/m2 901316.2 8 g 130 mm[Hg] 85 mm[Hg] Deanna Rip [facility] 16:08:03 Social History Question Answer Notes LastModified by Organizat ion Details LastModified Time Tobacco Smoking Status Current Every Day Smoker cigarettes [facility] 08/28/2024 10:40:00 Are You Blind Or Do You Have Difficulty Seeing? Yes [email or web address] Information not available 08/28/2024 What Is Your Level Of Caffeine Consumption? Heavy [email or web address] Information not available 08/28/2024 In The 14 Days Before Symptom Onset, Have You Had Close Contact With A Laboratory-confir med COVID-19 While That Case Was Ill? No [email or web address] Information not available 08/28/2024 In The 14 Days Before Symptom Onset, Have You Had Close Contact With A Person Who Is Under Investigation For COVID-19 While That Person Was Ill? No [email or web address] Information not available 08/28/2024 Have You Been To An Area Known To Be High Risk For COVID-19? No [email or web address] Information not available 08/28/2024 Are You Deaf Or Do You Have Serious Difficulty Hearing? No [email or web address] Information not available 08/28/2024 What Type Of Diet Are You Following? REGULAR [email or web address] Information not available 08/28/2024 What Is The Highest Grade Or Level Of School You Have Completed Or The Highest Degree You Have Received? FY27692-8 [email or web address] Information not available 08/28/2024 Are There Any Guns Present In Your Home? No [email or web address] Information not available 08/28/2024 Do You Use Protection During Sex? No [email or web address] Information not available 08/28/2024 Do You Use Your Seat Belt Or Car Seat Routinely? Yes [email or web address] Information not available 08/28/2024 Are You Sexually Active? Yes [email or web address] Information not available 08/28/2024 Do You Have Smoke And Carbon Monoxide Detectors In Your Home? Yes [email or web address] Information not available 08/28/2024 At What Age Did You Start Smoking Tobacco? 16 [email or web address] Information not available 09/18/2024 How Much Tobacco Do You Smoke? 0.5 PPD [email or web address] Information not available 09/18/2024 Do You Use Sunscreen Routinely? Yes [email or web address] Information not available 08/28/2024 Have You Used IV Drugs? No [email or web address] Information not available 09/18/2024 Do You Have Difficulty Walking Or Climbing Stairs? No [email or web address] Information not available 08/28/2024 Sex: Unknown Functional Status Question Answer Note LastModified by Organizat ion Details LastModified Time Do you use any illicit or recreational drugs? No [email or web address] Information not available 09/18/2024 What is your level of alcohol consumption? None Information not available 08/28/2024 Are you currently employed? No [email or web address] Information not available 08/28/2024 Are you able to walk? [email or web address] Information not available 08/28/2024 Are you able to care for yourself? Yes [email or web address] Information n ot available 08/28/2024 Do you have difficulty dressing or bathing? No [email or web address] Information not available 08/28/2024 What is your exercise level? None [email or web address] Information not available 08/28/2024 Mental Status Question Answer Note LastModified by Organization D etails LastModified Time Do you feel stressed (tense, restless, nervous, or anxious, or unable to sleep at night)? [id number] [email or web address] Information not available 08/28/2024 Family History Relationship Description Onset Age of this Age Resolved Age Notes LastModified by Organization Details LastModified Time Mother Anemia [email or web address] Not available 08/28/2024 10:39:09 Mother Asthma [email or web address] Not available 08/28/2024 10:39:16 Mother Seizure disorder [email or web address] Not available 11/07 15:10:11 Sister Anemia [email or web address] Not available 08/28/2024 10:39:09 Father Diabetes mellitus Not available 2024 10:39:26 Father Hypertensive disorder Not available 2024 10:39:34 Medical History Condition Response Allergies (Food, seasonal, environmental ) N Other N Breast Cancer N Drug/Latex Allergies/Reactions Y Blood Transfusion N Lung Disease N Dermatologic Disorders N Defects or Inherited Disease N Breast Problem N Gestational Diabetes N Hematologic disorders N Anesthesia Complications N History of STI Y Deep Vein Thrombosis N Polycystic ovary syndrome N Anxiety Disorder N Autoimmune disease N Arthritis N Infertility N Polyps N Acid Reflux (GERD) N History of abnormal pap Y Cancer N Stroke N Varicosities N Neurologic/Epilepsy N Endometriosis N High Cholesterol N Headaches N Fibromyalgia N Kidney Disease N Heart Problems N Kidney or Bladder Problems N Thyroid Problems N GI Problems N Eating Disorder [...] Was last menstrual period normal N STIs/STDs Yes Colposcopy Duration of Flow (days) 9 Current [...] SNOMED-CT Code Diagnosis ICD10 Code Diagnosis Note [id number] Mychal Gordon MD [facility] [address],[facility] [place] [address] 08/28/2024 10:05:14 08/28/2024 11:25:15 Abnormal uterine bleeding [id number] 9100 N93.9 Urinary symptoms 9255913 08 R39.9 Gynecologi c examination 01135987 Z01.419 Annual gynecologi lee ann exam performed. [...] Pap smear- today laboratory evaluation - today [id number] Mychal Gordon MD [facility] [address] [address] 08/31/2024 17:25:28 09/01/2024 08:24:10 Menorrhagia 231715505 N92.0 N94.6 N94.10 N92.6 [id number] Mychal Gordon MD [facility] [address],[facility] [place] [address] 09/18/2024 10:13:52 09/18/2024 12:19:10 Pain in pelvis 02320773 R10.2 Endometrio sis of pelvis 91602373 N80.9 This patient is a 34-year-ol d [...] minutes on the patient's care in total. [id number] Mychal Gordon MD [facility] [address] [address] 10/23/2024 10:44:26 10/25/2024 09:53:53 Bacterial disease screening 223785781 Z11.8 Sexually t ransmitted infectious disease 1608409 A[age]-year-ol d female who presents for STD screening. She has been exposed possibly 2 sexually transmitte d disease. We talked about prevention . We talked about the blood testing. That will be performed as well. [id number] Mychal Gordon MD [facility] [address] [address] 11/17/2024 15:10:02 11/18/2024 04:50:00 Pain in pelvis 95774210 R10.2 Endometrio sis (clinical) 802694136 N80.9 this patient is a 34-year-ol d [...] Member ID Wilde Member ID Guarantor Name 11/24/2024 1 [facility] - DOS ON OR AFTER 2020 - DUAL ELIGIBLE (MEDICARE REPLACEMENT/AD VANTAGE - HMO) Yudith Larios [id number] Yudith Larios 11/24/2024 1 [facility] (MEDICAID REPLACEMENT - HMO) Yudith Larios [id number] Yudith Larios Notes Date Note Type Note [...] uterine Mychal Gordon MD [address], [place], [address], [facility] 08/28/2024 11:20:08 09/18/2024 text/html This patient [...] total. Mychal Gordon MD [address], [place], [address], [facility] 09/18/2024 12:18:16 10/23/2024 text/html 34-year-old meghan gutierrez who presents for STD screening. She has been exposed possibly 2 sexually transmitted disease. We talked about prevention. We talked about the blood testing. That will be performed as well. Mychal Gordon MD [address], [place], [address], [facility] 10/23/2024 13:34:58 11/17/2024 text/html this patient [...] infection. Mychal Gordon MD [address], [place], [address], [facility] 11/17/2024 19:18:12 OBGyn Episode Ob Episode Information Episode Created Date Number of Fetuses Patient Bloodtype Patient rh Status Prepregnancy Weight lbs Domestic Partner Domestic Partner Phone Father Name Brake Operator Helper Status 10/24/19 25 1 CLOSED Fetus Data First Name Last Name Admitted to NICU Weight (g) Sex Living Outcome Pediatric Complications Fetus ID Race Codes Race Delivery Type , Spontane ous [id number] John Calculation Initial John Date Initial Exam [...] Domestic Partner Domestic Partner Phone Father Name Brake Operator Helper Status 08/29/19 25 1 CLOSED Fetus Data First Name Last Name Admitted to NICU Weight (g) Sex Living Outcome Pediatric Complications Fetus ID Race Codes Race Delivery Type 2267.96 M Prematur e 40818 Primary John Calculation Initial John Date Initial [...] Domestic Partner Domestic Partner Phone Father Name Brake Operator Helper Status 08/29/19 25 1 CLOSED Fetus Data First Name Last Name Admitted to NICU Weight (g) Sex Living Outcome Pediatric Complications Fetus ID Race Codes Race Delivery Type 2267.96 F Prematur e 13384 Vaginal Delivery John Calculation Initial John Date [...] Domestic Partner Domestic Partner Phone Father Name Brake Operator Helper Status 08/29/19 25 1 CLOSED Fetus Data First Name Last Name Admitted to NICU Weight (g) Sex Living Outcome Pediatric Complications Fetus ID Race Codes Race Delivery Type 907.184 M Prematur e 15091 Primary John Calculation Initial John Date Initial [...]
--- NOTE | 2024-11-25 11:44 | WPDANESEPPF ---
Anes - Initial Pre Proc Eval Procedure: Operation Date: 11/25/24 12:00 Proposed Procedures p Robotic Assisted Hysterectomy with Bilateral Salpingectomy - Mychal Gordon MD Date/Time: 11/25/24 11:44 Surgeon: Mychal Gordon MD Pre Op Diagnosis: Endometrial Cyst of Pelvis Patient Data Age: 34 Gender: F Height: 1.68 m Weight: 102.2 kg Allergies Allergy/AdvReac Type Severity Reaction Status Date / Time codeine Allergy Rash Verified 11/17/24 18:16 Penicillins Allergy Rash Verified 11/17/24 18:16 Home Medications ?Medication ?Instructions ?Recorded ?Confirmed ?Type azithromycin 500 mg tablet See Rx Instructions PO .COMPLEX 11/17/24 11/17/24 History Patient hx anesthesia problems: none Family hx anesthesia problems: none Results Review: All pre-operative results and documents have been reviewed as part of the pre-operative evaluation. [facility] Past Medical History Medical History Patient denies medical problems Social History Social History Years smoked: 15 Smoking status: Current every day smoker Tobacco type: cigarettes Spiritual care concerns: No Anes - Eval Final PreProcedure Day of Procedure 11/25/24 11:44 Patient weight: obese Heart: regular rate and rhythm Lungs: decreased breath sounds Airway: Mallampati scale class II Neurological: alert and oriented Last oral intake: >/= 8 hours ASA classification: III Emergent: no Anesthetic plan: proceed Anesthesia type and monitoring: general ETT and standard monitoring Results Review: All pre-operative results and documents have been reviewed as part of the pre-operative evaluation. Informed Consent: The patient's anesthetic plan and its attendant risks and benefits were discussed with the patient/family/POA. Questions were solicited and answers provided to the satisfaction of the patient/family/POA.
--- NOTE | 2024-11-25 12:23 | WPDHPUPDATE1 ---
History and Physical Update Update Date/Time: 11/25/24 12:23 History and Physical has been reviewed, including an updated exam of the patient. There are NO changes in the patient's condition. Risks, benefits, and alternatives have been discussed and questions answered. Patient agrees to proceed with procedure.
[2024-11-25] MEDS: ceFAZolin 2 GM/D5W 50 ML 2 GM/50 ML BAG IVPB (12:31)
[2024-11-25] MEDS: ceFAZolin SODIUM 1 GM VIAL (13:05)
--- NOTE | 2024-11-25 14:30 | S_PTH ---
PATIENT: Yudith Larios LOC: [facility] U#:[id number] AGE/SX: 34/F ROOM: RE11/25/[address]: Mychal Gordon MD : 1990 BED: DIS: 11/26/2024 SPEC #: [id number] RECD: 11/26/24 08:13 STATUS: ISAAC REQ #: [id number] TIMOTHY: 11/25/24 14:[address]: Mychal Gordon DEPT: [facility] Surgical RECD BY: Narcisa Lock ENTERED: 11/26/24 08:13 SP TYPE: Surgical OTHR DR: [employer] SERVICES MANAGER PHYSICIAN Tissues: A - Uterus Procedures: Hematoxylin and Eosin Stain Gross and Microscopic Level 5
[2024-11-25] MEDS: METHYLENE BLUE 0.5% INJ 10 ML AMPULE 20 ML IRRIGATION (14:33)
--- NOTE | 2024-11-25 15:02 | P.OP_ITS ---
Procedure Note - Detailed Date of Procedure 11/25/24 Pre-op Diagnosis Pelvic pain and endometriosis Post-op Diagnosis Same (With pelvic adhesions and scar tissue) Procedure Performed Robot assisted Total hysterectomy with bilateral salpingectomy. Surgeon Mychal Gordon MD Anesthesia General Indications heavy vaginal bleeding, pelvic pain Findings Normal-appearing ovaries and fallopian tubes. Mildly enlarged uterus with dense parametrial scarring. Scarring all around the vaginal cuff bladder at the junction of the lower uterine segment. Description of Procedure This patient was taken to the operating room. She was prepped and draped in the dorsal lithotomy position after induction of general anesthesia. The uterine manipulator and Mian cup were placed. This was done with a speculum and tenaculum. The speculum was placed. The cervix was grasped with a tenaculum. The stay sutures were placed at 3 and 9:00 a.m.. The stay sutures of 0 Vicryl were tied to the appropriately Size scope after it was slipped around the cervix.. The tip of the ROSE manipulator was placed in the intrauterine cavity. The cup was slid into place around the cervix and into the fornices. It was locked into place. The sutures were then wrapped around the handle and tied under tension. A 8 mm skin incision was made in the left upper quadrant the abdomen. a 5 mm Visiport trocar was inserted into abdominal cavity and pneumoperitoneum was achieved. A 8 mm supraumbilical incision was made and a 8 mm trocar was inserted into the intrauterine cavity under direct visualization of the scope. an 8 mm incision was made in the right upper quadrant of the abdomen and an 8 mm robotic trocar was placed the inter uterine cavity under direct visualization the scope. An 11 mm trocar was inserted in the right upper quadrant of the abdomen rectal is a cystoscope after an incision was made there as well. The robot was docked. Electronic Orientation of the robot was performed. Bilateral ureteral lysis was performed. This was done from the pelvic brim down to the uterine artery. This was done with careful dissection using sharp and blunt dissection. The fallopian tubes were removed bilaterally. The mes osalpinx around the fallopian tubes were cauterized transected with LigaSure cautery. This was done in a bilateral fashion from the ovary to the uterine cornua. The fallopian tube was transected at the uterine cornu and amputated. The tube was taken out the left lower quadrant trocar site. In a stepwise fashion along the lateral aspects of the uterus the round ligament and broad ligaments were cauterized transected down to the level of the uterine arteries. A bladder flap was created in the bladder was moved distally to the end of the cervix and over the Mian cup. The bilateral uterine arteries were cauterized and transected. Colpotomy was then performed. In a circumferential fashion the vagina was transected using unipolar cautery. The incision was made down on the Mian cup. The uterus and cervix were taken out through the vagina. A pneumo occluder was placed in the vagina. The vaginal cuff was closed with a 0 V lock suture in a running fashion. The pelvis was irrigated with copious amounts antibiotic irrigation. The ureters were again examined and found to be intact and flowing freely under the uterine arteries into the bladder. The bladder was intact. It was examined directly. Cystoscopy was performed after administration of methylene blue. The cystoscope was inserted. Bladder was distended with fluid. The ureteric meatus was observed bilaterally. Blue fluid was seen to egress bilaterally. The bladder was drained and the cystoscope was withdrawn. The vagina was irrigated with Betadine solution after removal of the Pneumo occluder. the trocars were removed after the robot was undocked. The skin was closed with subacute or Dermabond. The patient was taken to recovery room. She was stable condition. Sponge lap and needle counts were correct x2. Estimated Blood Loss 125 Urine Output 800 Drains Yes Packing No Pathology Yes Complications No immediate complications Condition Stable Disposition Floor
[2024-11-25] MEDS: LACTATED RINGERS 1,000 ML 30 ML IV CONT ×2 (15:04)
[2024-11-25] MEDS: fentaNYL CITRATE INJ (*CRX) 100 MCG/2 ML VIAL 25 MCG IV PUSH ×7 (15:24→16:10)
[2024-11-25] MEDS: PROPARACAINE HCL 0.5% 15 ML OPHTH SOLN 1 DROP EACH EYE (16:17)
[2024-11-25] MEDS: ARTIFICIAL TEARS OPHTH SOLN 15 ML BOTTLE 1 DROP EACH EYE (16:21)
--- NOTE | 2024-11-25 16:28 | SUR.PHASEI ---
PATIENT C/O'ING URGENCY TO URINATE, STATES SHE HAS BLADDER PRESSURE; ABDOMEN SOFT/NONTENDER TO PALPATION. URINE FLOWING VIA AVITIA CATHETER. RIGHT EYE WATERING, SOMEWHAT REDDENED, ITCHY; DR. DANIELLE CALLED; INSTRUCTED TO INITIATE CORNEAL ABRASION PROTOCOL.
[2024-11-25] MEDS: DICLOFENAC SODIUM 0.1% OPHTH SOLN 2.5 ML BOTTLE 1 DROP EACH EYE (16:32)
--- NOTE | 2024-11-25 16:41 | ADMGEN ---
This patient, Yudith Larios, was admitted to OB 2nd Floor Room 287-00. Patient/family oriented to hospital policies and general routines including ID bracelet, bed and alarms, visiting hours, pain management, procedures, bathroom and other care routines, personal items, smoking policy, room service/diet, and visiting hours. Information on how to activate the Rapid Response Team has been discussed. Patient/Family are encouraged to report perceived risks to care and to ask questions if they do not understand what they are told or what they should do.
[2024-11-25] MEDS: DEXTROSE 5%/0.45% SOD CHL 1,000 ML 125 ML IV CONT (17:18)
[2024-11-25] MEDS: ACETAMINOPHEN 500 MG TABLET 1000 MG PO (17:19)
[2024-11-25] MEDS: DOCUSATE SODIUM 100 MG CAPSULE PO (17:19)
[2024-11-25] MEDS: KETOROLAC 30 MG/ML VIAL (*BKC) IV PUSH (17:19)
[2024-11-25] MEDS: SIMETHICONE 80 MG TAB.CHEW PO (17:19)
[2024-11-25] MEDS: NICOTINE (*PBKC) 14 MG PATCH 1 PATCH TRANSDERM (18:49)
[2024-11-25] MEDS: oxyCODONE HCL (*CRX) 5 MG TAB IR 10 MG PO (18:49)
[2024-11-26] MEDS: ACETAMINOPHEN 500 MG TABLET 1000 MG PO ×3 (00:14→12:06)
[2024-11-26] MEDS: KETOROLAC 30 MG/ML VIAL (*BKC) IV PUSH ×2 (00:15→06:16)
[2024-11-26 00:56] VITALS: BP 114/75; PULSE 65; RESP 16; TEMP 36.7; O2SAT 98
[2024-11-26] MEDS: oxyCODONE HCL (*CRX) 5 MG TAB IR 10 MG PO ×3 (01:08→13:03)
[2024-11-26 04:00] VITALS: BP 98/57; PULSE 65; RESP 14; TEMP 36.7; O2SAT 98
[2024-11-26] MEDS: SIMETHICONE 80 MG TAB.CHEW PO ×2 (07:15→12:06)
[2024-11-26] MEDS: DOCUSATE SODIUM 100 MG CAPSULE PO (07:15)
[2024-11-26 07:45] VITALS: BP 116/79; PULSE 78; RESP 16; TEMP 36.9; O2SAT 99
--- NOTE | 2024-11-26 07:48 | WPDANESPN ---
Anes - Prog Note Post-Op Date/Time: 11/26/24 07:48 Cardiovascular status: normal Respiratory status: normal Airway patency: baseline Mental status: baseline Vital Signs: Last Vital Signs Temp 36.7 C 11/26/24 04:00 Pulse 65 11/26/24 04:00 Resp 14 11/26/24 04:00 BP 98/57 L 11/26/24 04:00 Pulse Ox 98 11/26/24 04:00 O2 Del Method Room Air 11/25/24 16:50 O2 Flow Rate 8 11/25/24 15:30 Pain Score (VAS): 4 I/O: Intake & Output 11/25/24 11/25/24 11/26/24 15:59 23:59 07:59 Intake Total 800 Output Total 800 180 Balance -800 620 Patient Feedback: Patient satisfied with anesthetic care.
[2024-11-26] MEDS: IBUPROFEN 600 MG TABLET PO (12:06)
--- NOTE | 2024-11-26 13:00 | PM.GYNPNOP ---
CORRECTIONAL COUNSELOR/CASE MANAGER - A/P Postoperative Procedures: Procedures Operation Date: 11/25/24 12:00 Actual Procedure Side Surgeon p Robotic Assisted Hysterectomy with Bilateral Salpingectomy Bilateral Mychal Gordon MD Postoperative day: 1 Postoperative status: doing well Postoperative plan: see orders Time Spent With Patient Time: Total time spent is greater than 50% in coordination of care (as documented) at patient's floor/unit and/or counseling patient: Time with patient: less than 15 minutes CORRECTIONAL COUNSELOR/CASE MANAGER- PN:Subj Post-Op Subjective Date/time seen: 11/26/24 13:00 Subjective: patient reports feeling better, patient has no complaints and pain is well controlled Exam Const: General: healthy appearing, comfortable and no acute distress Resp: Auscultation: clear to auscultation bilaterally, no rales, no rhonchi and no wheezes Cardio: Rate: regular rate Heart sounds: no click, no murmurs and no rubs GI: Inspection: non-distended Auscultation: normal bowel sounds Extrem: General: normal to inspection, no pedal edema and no calf tenderness CORRECTIONAL COUNSELOR/CASE MANAGER - PN: Obj Data Vital Signs Vital Signs: Vital Signs - 24 hr 11/25/24 15:04 11/25/24 15:15 11/25/24 15:30 Temperature 97.1 F L Pulse Rate 64 68 67 Respiratory Rate 13 19 14 Blood Pressure 112/80 121/77 115/75 Pulse Oximetry 94 94 100 Oxygen Delivery Simple Face Mask Simple Face Mask Simple Face Mask Oxygen Flow Rate 8 8 8 11/25/24 15:45 11/25/24 16:00 11/25/24 16:15 Temperature Pulse Rate 69 67 67 Respiratory Rate 10 L 14 9 L Blood Pressure 118/63 115/52 L 117/77 Pulse Oximetry 100 97 97 Oxygen Delivery Room Air Room Air Room Air Oxygen Flow Rate 11/25/24 16:50 11/25/24 16:50 11/26/24 00:56 Temperature 98.0 F 98.0 F Pulse Rate 67 65 Respiratory Rate 14 16 Blood Pressure 115/68 114/75 Pulse Oximetry 98 98 Oxygen Delivery Room Air Oxygen Flow Rate 11/26/24 04:00 11/26/24 07:45 Temperature 98.1 F 98.4 F Pulse Rate 65 78 Respiratory Rate 14 16 Blood Pressure 98/57 L 116/79 Pulse Oximetry 98 99 Oxygen Delivery Oxygen Flow Rate Intake/Output Intake/Output: Intake & Output 11/23/24 11/24/24 11/25/24 11/26/24 23:59 23:59 23:59 23:59 Intake Total 800 Output Total 980 Balance -180 Meds/Results Medications: Active Medications Generic Name Dose Route Start Last Admin Trade Name Freq PRN Reason Stop Dose Admin Acetaminophen 1,000 mg 11/25/24 18:00 11/26/24 12:06 Acetaminophen 500 Mg Tablet PO 1,000 mg Q6HR BRYAN Administration Artificial Tears 1 drop 11/25/24 16:11 11/25/24 16:21 Artificial Tears Ophth Soln 15 Ml Bottle EACH EYE 1 drop Q2H PRN Administration Dry Eye(s) Diclofenac Sodium 1 drop 11/25/24 22:00 11/26/24 07:16 Diclofenac Sodium 0.1% Ophth Soln 2.5 Ml Bottle EACH EYE 11/29/24 21:59 Not Given Q8HR BRYAN Docusate Sodium 100 mg 11/25/24 17:00 11/26/24 07:15 Docusate Sodium 100 Mg Capsule PO 100 mg BID BRYAN Administration Ibuprofen 600 mg 11/26/24 12:00 11/26/24 12:06 Ibuprofen 600 Mg Tablet PO 600 mg Q6HR BRYAN Administration Naloxone HCl 0.1 mg 11/25/24 16:35 Naloxone Hcl 0.4 Mg/Ml Vial IV PUSH Q2M PRN Respiratory rate less than 10 Ondansetron HCl 4 mg 11/25/24 16:35 Ondansetron Inj 4 Mg/2 Ml Vial IV PUSH Q6H PRN Nausea And Vomiting Oxycodone HCl 5 mg 11/25/24 16:35 Oxycodone Hcl (*Crx) 5 Mg Tab Ir PO Q4H PRN Pain Rated 4-6 Oxycodone HCl 10 mg 11/25/24 16:35 11/26/24 07:15 Oxycodone Hcl (*Crx) 5 Mg Tab Ir PO 10 mg Q6H PRN Administration Pain Rated 7-10 Simethicone 80 mg 11/25/24 17:00 11/26/24 12:06 Simethicone 80 Mg Tab.Chew PO 80 mg TIDWM BRYAN Administration
[2024-11-26] MEDS: ONDANSETRON HCL ODT 4 MG TABLET (13:04)
== END 2024-11-26 13:50 | disposition home or self-care (01) ==
LOC: ANHSURGERY 09:43 → ANHOB2 17:00
PROVIDERS: Visit Provider Obstetrics & Gynecology
PROC: (CPT 58571; principal; 2024-11-25 12:00)
DX: N80.00 Endometriosis of the uterus, unspecified (principal); D25.9 Leiomyoma of uterus, unspecified; R10.2 Pelvic and perineal pain; N80.03 Adenomyosis of the uterus; N73.6 Female pelvic peritoneal adhesions (postinfective); F17.210 Nicotine dependence, cigarettes, uncomplicated; E66.9 Obesity, unspecified; Z68.35 Body mass index [BMI] 35.0-35.9, adult
CPT/HCPCS: 58571; S2900; 88307; 99199; A9270; J0690; J1100; J1171; J1885; J2003; J2250; J2405; J2704; J3010; J7030; J7120; Q9968

== ENCOUNTER 2025-02-05 07:35 | Emergency (ER) | payer OTHER, SELFPAY ==
[2025-02-05 07:35] VITALS: BP 147/80; PULSE 82; RESP 16; TEMP 36.8; O2SAT 99
[2025-02-05 08:04] LABS: Add Urine Microscopic? YES; Appearance Urine Sl Cloudy (Clear); Glucose Urine UA Negative (Negative); Leukocyte Esterase Ur Negative LEU/UL (Negative); Nitrate Urine Negative (Negative); Specific Grav Ur 1.020 (1.010-1.020)
--- NOTE | 2025-02-05 08:07 | PC.NURSE ---
covid culture sent to lab
[2025-02-05 08:44] LABS: Influenza A QL RT-PCR Negative (Negative); Influenza B QL RT-PCR Negative (Negative); RSV RNA, RT-PCR Negative (Negative); SARS-CoV-2 RNA PCR Negative (Negative); Strep Group A RT-PCR NOT DETECTED (Negative)
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
--- NOTE | 2025-02-05 08:48 | ED_ITS ---
HPI - Female Genitourinary General Chief complaint: Urogenital-Female Stated complaint: cough, congestion, & possible UTI Time Seen by Provider: 02/05/25 07:37 Source: patient Mode of arrival: ambulatory Limitations: no limitations History of Present Illness HPI Narrative: This is a 34-year-old female that presents with some mild dysuria and cough congestion with no fever chills no nausea vomiting no flank pain no hematuria. MD elicited complaint: dysuria Onset (ago): day(s) Severity: mild Consistency: intermittent Related Data Home Medications ?Medication ?Instructions ?Recorded ?Confirmed ?Last Taken ?Type azithromycin 500 mg tablet See Rx Instructions PO .COM PLEX 11/17/24 11/17/24 11/17/24 History Allergies Allergy/AdvReac Type Severity Reaction Status Date / Time codeine Allergy Rash Verified 02/05/25 07:44 Penicillins Allergy Rash Verified 02/05/25 07:44 Review of Systems Review of Systems: All systems reviewed & are unremarkable except as noted in HPI and below PMFSH Past Medical History Medical History Patient denies medical problems Social History Social History Years smoked: 15 Smoking status: Current every day smoker Tobacco type: cigarettes Spiritual care concerns: No Exam Const: General: healthy appearing Nutritional Appearance: well nourished Orientation/consciousness: patient oriented x3 Limitations: no limitations HENMT: Head: normal to inspection Eyes: Conjunctivae: conjunctivae normal Neck: Neck: normal visual inspection, no lymphadenopathy and no meningeal signs Chest: Chest palpation & inspection: normal inspection of the chest Resp: Effort & Inspection: normal respiratory effort Auscultation: clear to auscultation bilaterally Cardio: Rate: regular rate Rhythm: regular rhythm GI: GI Palp: Yes Soft to palpation Auscultation: normal bowel sounds : General: Yes bladder normal to palpation Urinary Catheter: Urinary Catheter: patent and draining Skin: General skin exam: normal color Course Course Emergency Course: COVID influenza RSV and strep negative, urinalysis shows negative for urinary tract infection MDM - Female Genitourinary Lab Data Labs: Lab Results 02/05/25 02/05/25 Range/Units 07:50 07:51 Urine Color Light yellow (Yellow) Urine Appearance Sl cloudy A (Clear) Urine pH 6.0 (5.0-8.0) Ur Specific [place] 1.020 (1.010-1.020) Urine Protein Negative (Negative) Urine Glucose (UA) Negative (Negative) Urine Ketones Negative (Negative) Ur Blood (Man) Negative (Negative) Urine Nitrate Negative (Negative) Urine Bilirubin Negative (Negative) Urine Urobilinogen 0.2 (0.2-1.0) mg/dL Leukocyte Esterase Rfl Negative (Negative) REDD/UL Urine RBC 0-2 (0-2) /hpf Urine WBC 0-3 (0-3) /hpf Ur Squamous Epith Cells Moderate H (Few) /hpf Urine Bacteria Rare (None) /hpf Influenza A (RT-PCR) Negative (Negative) Influenza B (RT-PCR) Negative (Negative) RSV (RT-PCR) Negative (Negative) SARS-CoV-2 RNA (RT-PCR) Negative (Negative) Group A Strep (PCR) Not detected (Negative) Critical Care Time Critical Care Time Critical Care Time: No Discharge Plan Discharge Clinical Impression: Viral syndrome Patient Disposition: Home Condition: Stable Instructions: Antibiotic Form, Viral Syndrome (ED) Additional Instructions: advised patient to drink plenty of fluids take Tylenol Motrin as needed follow with primary if symptoms persist or worsen. Patient Language: Prydeinig Prescriptions: No Action azithromycin 500 mg tablet See Rx Instructions .ROUTE .COMPLEX Rx Instructions: For 250 mg dose pack: take 500 mg today (day 1), then 250 mg for 4 days (days 2-5) hydrocodone-acetaminophen 5-325 mg tablet 1 - 2 tablet PO Q6H PRN (Reason: pain) Qty: 25 0RF ondansetron 8 mg tablet,disintegrating 8 mg PO Q8H Qty: 30 3RF Follow-up/Referrals: PHYSICIAN,NANOTECHNOLOGY ENGINEERING TECHNOLOGIST [Primary Care Provider, Internal Medicine] Time of Disposition: 08:50
[2025-02-05 08:58] VITALS: BP 147/80; PULSE 82; RESP 16; TEMP 36.8; O2SAT 99
== END 2025-02-05 08:58 | disposition home or self-care (01) ==
PROVIDERS: Emergency Provider Emergency Medicine; Referring Provider Internal Medicine
DX: B34.9 Viral infection, unspecified (principal); F17.210 Nicotine dependence, cigarettes, uncomplicated; Z20.822 Contact with and (suspected) exposure to COVID-19
CPT/HCPCS: 81001; 87637; 87651; 99283

== ENCOUNTER 2025-02-11 12:59 | Emergency (ER) | payer OTHER, SELFPAY ==
--- NOTE | ~2025-02-11 | XR_ITS ---
XR chest 2V 02/11/2025 13:29 Indication: Cough Procedure: 2 view chest Comparison: 08/07/2023 Findings: Heart size normal. Lungs clear. No focal air space disease, pulmonary edema, pleural effusion or suspected pneumothorax. Impression: 1: No acute cardiopulmonary disease. Reviewed, dictated and finalized at location O. Impression: 1: No acute cardiopulmonary disease.
[2025-02-11 13:00] VITALS: BP 149/100; PULSE 85; RESP 14; TEMP 36.6; O2SAT 95
--- NOTE | 2025-02-11 13:01 | ED_ITS ---
HPI - URI/Sore Throat General Chief Complaint: Upper Respiratory Infection Stated Complaint: cold symptoms. Time Seen by Provider: 02/11/25 13:01 Source: patient Mode of arrival: ambulatory Limitations: no limitations History of Present Illness HPI Narrative: patient is a 34-year-old female with upper respiratory congestion and nasal congestion with some facial sinus pressure and pain. She was in the ER the [facility] er day and sent home with viral syndrome. She has continued symptoms and worse at this time. MD elicited complaint: cough, rhinorrhea, nasal congestion and sinus pain Pertinent past history: other ( None) Onset (ago): week(s) ( 1) Consistency: constant Severity: moderate Pain scale (0-10): 4 Description of mucous: clear and yellow Able to tolerate fluids by mouth: Yes Exacerbating factors: nothing Relieving factors: nothing Context: other ( patient having sinus pain and pressure for the past week without resolution and getting worse) Associated symptoms: rhinorrhea, nasal congestion and cough Treatments prior to arrival: none Related Data Home Medications ?Medication ?Instructions ?Recorded ?Confirmed ?Last Taken ?Type azithromycin 500 mg tablet See Rx Instructions PO .COM PLEX 11/17/24 11/17/24 11/17/24 History Allergies Allergy/AdvReac Type Severity Reaction Status Date / Time codeine Allergy Rash Verified 02/11/25 13:01 Penicillins Allergy Rash Verified 02/11/25 13:01 Review of Systems Review of Systems: All systems reviewed & are unremarkable except as noted in HPI and below Constitutional: Constitutional: Reports no additional constitutional complaints Eyes: Eyes: Reports no additional eye complaints ENT: Reports system reviewed and no additional complaints, except as documented Cardiovascular: Cardiovascular: Reports no additional cardiovascular complaints Respiratory: Respiratory: Reports no additional respiratory complaints Gastrointestinal: Gastrointestinal: Reports no additional gastrointestinal complaints Genitourinary: Genitourinary: Reports no additional female genitourinary complaints Musculoskeletal: Musculoskeletal: Reports no additional musculoskeletal co mplaints Integumentary/Breasts: Skin/Breast: Reports system reviewed and no additional complaints, except as docu Neurologic: Reports system reviewed and no additional complaints, except as documented Psychiatric: Psychiatric: Reports no additional psychiatric complaints Endocrine: Endocrine: Reports no additional endocrine complaints Hematologic/Lymphatic: Hematologic/Lymphatic: Reports no additional hematologic/lymphatic complaints Allergic/Immunologic: Allergic/Immunologic: Reports no additional allergic/immunologic complaints [facility] Past Medical History Medical History Patient denies medical problems Social History Social History Years smoked: 15 Smoking status: Current every day smoker Tobacco type: cigarettes Spiritual care concerns: No Exam Const: General: healthy appearing Nutritional Appearance: well nourished Orientation/consciousness: patient oriented x3 HENMT: Head: normal to inspection Ears: external ears normal Face/Nose/Sinus: Normal external nose present Face and sinus: sinus tender ness frontal and maxillary Throat: posterior oropharynx normal Eyes: Conjunctivae: conjunctivae normal Pupils: Equal, round and reactive pupils present EOM: EOMs intact bilaterally Neck: Neck: normal visual inspection Chest: Chest palpation & inspection: normal inspection of the chest Resp: Effort & Inspection: normal respiratory effort and not labored Auscultation: clear to auscultation bilaterally and no crackles Cardio: Rate: regular rate Rhythm: regular rhythm Heart sounds: no murmurs GI: Inspection: non-distended GI Palp: Yes Soft to palpation and No Tenderness to palpation present (GI) Auscultation: normal bowel sounds : General: Yes bladder normal to palpation Back/Spine/Pelvis: Back: no CVA tenderness Skin: General skin exam: normal color Rashes: no rashes Wounds: no wounds Neuro: General: patient oriented x3, moves all extremities and no meningeal signs Extrem: General: normal to inspection Psych: Mental Status: mental status grossly normal Affect: normal affect Attitude: cooperative Course Vital Signs Vital signs: Vital Signs Temperature 36.6 C 02/11/25 13:00 Pulse Rate 85 02/11/25 13:00 Respiratory Rate 14 02/11/25 13:00 Blood Pressure 149/100 H 02/11/25 13:00 Pulse Oximetry 95 02/11/25 13:00 Oxygen Delivery Room Air 02/11/25 13:00 Temperature 36.6 C 02/11/25 14:05 Pulse Rate 85 02/11/25 14:05 Respiratory Rate 14 02/11/25 14:05 Blood Pressure 135/95 H 02/11/25 14:05 Pulse Oximetry 96 02/11/25 14:05 Oxygen Delivery Room Air 02/11/25 14:05 MDM - URI/Sore Throat MDM Narrative Medical decision making narrative: patient is a 34-year-old female with cough congestion and nasal sinus pressure. We will do COVID panel and strep and chest x-ray with urine and urine preg. Lab Data Attestation: I reviewed the patient's lab results. Labs: Lab Results 02/11/25 02/11/25 Range/Units 13:03 13:21 Urine Color Dark yellow (Yellow) Urine Appearance Sl cloudy A (Clear) Urine pH 5.5 (5.0-8.0) Ur Specific [place] >= 1.030 H (1.010-1.020) Urine Protein Trace H (Negative) Urine Glucose (UA) Negative (Negative) Urine Ketones 1+ H (Negative) Ur Blood (Man) Negative (Negative) Urine Nitrate Negative (Negative) Urine Bilirubin 1+ H (Negative) Urine Urobilinogen 1.0 (0.2-1.0) mg/dL Leukocyte Esterase Rfl Negative (Negative) REDD/UL Urine RBC 0-2 (0-2) /hpf Urine WBC 0-3 (0-3) /hpf Ur Squamous Epith Cells Moderate H (Few) /hpf Urine Bacteria 1+ H (None) /hpf Urine Test Negative Influenza A (RT-PCR) Negative (Negative) Influenza B (RT-PCR) Negative (Negative) RSV (RT-PCR) Negative (Negative) SARS-CoV-2 RNA (RT-PCR) Negative (Negative) Group A Strep (PCR) Not detected (Negative) Imaging Data Attestation: I personally reviewed and interpreted this imaging study as follows: Radiologist's impression: Chest x-ray is negative for acute process Discharge Plan Discharge Clinical Impression: Sinusitis Qualifiers: Sinusitis location: frontal Chronicity: acute Recurrence: non-recurrent Qualified Code(s): J01.10 - Acute frontal sinusitis, unspecified Patient Disposition: Home Condition: Stable Instructions: Sinusitis (ED) Patient Language: Yoruba Prescriptions: New doxycycline hyclate 100 mg capsule 100 mg PO BID 10 Days Qty: 20 0RF No Action azithromycin 500 mg tablet See Rx Instructions .ROUTE .COMPLEX Rx Instructions: For 250 mg dose pack: take 500 mg today (day 1), then 250 mg for 4 days (days 2-5) hydrocodone-acetaminophen 5-325 mg tablet 1 - 2 tablet PO Q6H PRN (Reason: pain) Qty: 25 0RF ondansetron 8 mg tablet,disintegrating 8 mg PO Q8H Qty: 30 3RF Follow-up/Referrals: PHYSICIAN NOT ON STAFF,NONSTAFF [Non-Staff] Time of Disposition: 13:55
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
[2025-02-11 13:25] LABS: Add Urine Microscopic? YES; Appearance Urine Sl Cloudy (Clear); Glucose Urine UA Negative (Negative); Leukocyte Esterase Ur Negative LEU/UL (Negative); Nitrate Urine Negative (Negative); Specific Grav Ur >= 1.030 (1.010-1.020)
[2025-02-11 13:27] LABS: Pregnancy On Board Control Positive
[2025-02-11 13:34] LABS: Strep Group A RT-PCR NOT DETECTED (Negative)
[2025-02-11 13:45] LABS: Influenza A QL RT-PCR Negative (Negative); Influenza B QL RT-PCR Negative (Negative); RSV RNA, RT-PCR Negative (Negative); SARS-CoV-2 RNA PCR Negative (Negative)
[2025-02-11 14:05] VITALS: BP 135/95; PULSE 85; RESP 14; TEMP 36.6; O2SAT 96
== END 2025-02-11 14:05 | disposition home or self-care (01) ==
PROVIDERS: Emergency Provider Emergency Medicine; Referring Provider Family Medicine
DX: J01.10 Acute frontal sinusitis, unspecified (principal); F17.210 Nicotine dependence, cigarettes, uncomplicated; Z20.822 Contact with and (suspected) exposure to COVID-19
CPT/HCPCS: 71046; 81001; 81025; 87637; 87651; 99283

== ENCOUNTER 2025-04-22 16:01 | Emergency (ER) | payer OTHER, SELFPAY ==
--- NOTE | ~2025-04-22 | CT_ITS ---
EXAMINATION: CT abdomen pelvis wo con, 04/22/2025 16:25 SR. MANAGER MARKETING HISTORY: Pain in region of bladder, urinary incontinence post hystere COMPARISON: No comparisons available. TECHNIQUE: CT scan of the abdomen and pelvis was performed without IV contrast. One or more of the following dose reduction techniques were used: automated exposure control, adjustment of the mA and/or kV according to patient size, use of iterative reconstruction technique. Unless otherwise stated, incidental findings do not require dedicated follow up imaging FINDINGS: CT abdomen: LUNG BASES: The lung bases are clear. The visualized portions of the heart and pericardium are unremarkable. LIVER: Unremarkable, liver contours intact, no lesions. SPLEEN: Unremarkable, no splenomegaly. KIDNEYS: Right Kidney: Unremarkable. No calculi. No hydronephrosis. Left Kidney: Unremarkable. No calculi. No hydronephrosis ADRENAL GLANDS: Unremarkable. PANCREAS: Unremarkable. GALLBLADDER/BILIARY: Unremarkable. No biliary dilatation. STOMACH AND ESOPHAGUS: Visualized stomach and esophagus within normal limits. BOWEL/MESENTERY: Moderate fecal content. No colitis or diverticulitis. Appendix normal. Mesentery normal. No thickened or dilated loops of small bowel. ADENOPATHY/RETROPERITONEUM: No lymphadenopathy. AORTA/VASCULATURE: Normal caliber aorta. FREE FLUID OR FREE AIR: No free fluid.. CT pelvis: SOLID ORGANS/REPRODUCTIVE: Post hysterectomy. No adnexal mass. Cystic left ovarian lesion 2 x 2 cm probable dominant follicle. BLADDER: Within normal limits. OSSEOUS STRUCTURES: No acute osseous abnormality.No suspicious lesions. OVERLYING SOFT TISSUES: Unremarkable. IMPRESSION: 1. No etiology identified to explain the patient's symptoms. Follow-up suggested if symptoms persist. Reviewed, dictated and finalized at location P. . MANAGER MARKETING IMPRESSION: 1. No etiology identified to explain the patient's symptoms. Follow-up suggeste d if symptoms persist.
[2025-04-22 16:01] VITALS: BP 138/89; PULSE 92; RESP 16; TEMP 36.4; O2SAT 98
--- NOTE | 2025-04-22 16:07 | ED.FEMALEGU ---
HPI - Female Genitourinary General Chief complaint: Urogenital-Female Stated complaint: urinary symptoms Time Seen by Provider: 04/22/25 16:06 Source: patient Mode of arrival: ambulatory Limitations: no limitations History of Present Illness HPI Narrative: Patient is a 35-year-old female with a hysterectomy about 2 months ago and having urinary loss/incontinence and frequency on a daily basis. No fever or chills. No burning. No other symptoms. No back pain or urinary retention or saddle anesthesia or bowel changes. MD elicited complaint: UTI and urinary incontinence Pertinent past history: hysterectomy (Two months ago) and urinary incontinence (Since surgery) Onset (ago): month(s) (Two) Location of symptoms: suprapubic Severity: mild Female Urogenital Radiation: Non-Radiating Severity scale (1-10): 2 Quality of pain: cramping Consistency: constant and progressively worsening Vaginal discharge: none Vaginal bleeding: none Urinary symptoms: Urgency and Frequency Exacerbating factors: none Relieving factors: none Associated symptoms: denies other symptoms Treatment prior to arrival: none Patient : No Possible : other (Hysterectomy) Related Data Home Medications ?Medication ?Instructions ?Recorded ?Confirmed ?Last Taken ?Type No Home Medications 04/22/25 04/22/25 Unknown History Allergies Allergy/AdvReac Type Severity Reaction Status Date / Time codeine Allergy Rash Verified 04/22/25 16:28 Penicillins Allergy Rash Verified 04/22/25 16:28 Review of Systems Review of Systems: All systems reviewed & are unremarkable except as noted in HPI and below Constitutional: Constitutional: Reports no additional constitutional complaints Eyes: Eyes: Reports no additional eye complaints ENT: Reports system reviewed and no additional complaints, except as documented Cardiovascular: Cardiovascular: Reports no additional cardiovascular complaints Respiratory: Respiratory: Reports no additional respiratory complaints Gastrointestinal: Gastrointestinal: Reports no additional gastrointestinal complaints Genitourinary: Genitourinary: Reports no additional female genitourinary complaints Musculoskeletal: Musculoskeletal: Reports no additional musculoskeletal complaints Integumentary/Breasts: Skin/Breast: Reports system reviewed and no additional complaints, except as docu Neurologic: Reports system reviewed and no additional complaints, except as documented Psychiatric: Psychiatric: Reports no additional psychiatric complaints Endocrine: Endocrine: Reports no additional endocrine complaints Hematologic/Lymphatic: Hematologic/Lymphatic: Reports no additional hematologic/lymphatic complaints Allergic/Immunologic: Allergic/Immunologic: Reports no additional allergic/immunologic complaints [facility] Past Medical History Medical History Patient denies medical problems Social History Social History Years smoked: 15 Smoking status: Current every day smoker Tobacco type: cigarettes Spiritual care concerns: No Exam Const: General: healthy appearing Nutritional Appearance: well nourished Orientation/consciousness: patient oriented x3 HENMT: Head: normal to inspection Ears: external ears normal Face/Nose/Sinus: Normal external nose present Eyes: Conjunctivae: conjunctivae normal Pupils: Equal, round and reactive pupils present EOM: EOMs intact bilaterally Neck: Neck: normal visual inspection Chest: Chest palpation & inspection: normal inspection of the chest Resp: Effort & Inspection: normal respiratory effort and not labored Auscultation: clear to auscultation bilaterally and no crackles Cardio: Rate: regular rate Rhythm: regular rhythm Heart sounds: no murmurs GI: Inspection: non-distended GI Palp: Yes Soft to palpation and No Tenderness to palpation present (GI) Auscultation: normal bowel sounds : General: No bladder normal to palpation (Tender suprapubic region to palpation) and No CVA tenderness Back/Spine/Pelvis: Back: no CVA tenderness Skin: General skin exam: normal color Rashes: no rashes Wounds: no wounds Neuro: General: patient oriented x3, moves all extremities and no meningeal signs Extrem: General: normal to inspection, no clubbing, cyanosis or edema and no pedal edema Psych: Appearance: grossly normal Mental Status: mental status grossly normal Affect: normal affect Course Vital Signs Vital signs: Vital Signs Temperature 36.4 C L 04/22/25 16:01 Pulse Rate 92 04/22/25 16:01 Respiratory Rate 16 04/22/25 16:01 Blood Pressure 138/89 04/22/25 16:01 Pulse Oximetry 98 04/22/25 16:01 Oxygen Delivery Room Air 04/22/25 16:01 Temperature 36.4 C L 04/22/25 16:01 Pulse Rate 92 04/22/25 16:01 Respiratory Rate 16 04/22/25 16:01 Blood Pressure 138/89 04/22/25 16:01 Pulse Oximetry 98 04/22/25 16:01 Oxygen Delivery Room Air 04/22/25 16:01 MDM - Female Genitourinary MDM Narrative Medical decision making narrative: Patient is a 35-year-old female with suprapubic discomfort and pressure as well as urinary loss and frequency since 2 months ago hysterectomy. We will do workup at this time. She will need to see urologist. She needs to update her gynecological surgeon. Lab Data Attestation: I reviewed the patient's lab results. 04/22/25 16:32 04/22/25 16:32 Labs: Lab Results 04/22/25 04/22/25 Range/Units 16:08 16:32 WBC 8.4 (4.8-10.8) K/mm3 RBC 5.07 (4.20-5.40) M/mm3 Hgb 13.8 (12.0-15.0) g/dL Hct 42.5 (35.0-49.0) % MCV 83.8 (78.0-102.0) fL MCH 27.2 (27.0-31.0) pg MCHC 32.5 (32-36) g/dL RDW 15.7 H (11.6-14.4) % Plt Count 321 (150-420) K/mm3 MPV 10.0 (9.2-11.8) fl Immature Gran % (Auto) 0.2 H (0.0-0.0) % Neut % (Auto) 69.2 (50.0-70.0) % Lymph % (Auto) 20.3 (18.0-42.0) % [place] % (Auto) 8.3 (2.0-11.0) % Eos % (Auto) 1.4 (1.0-6.0) % Baso % (Auto) 0.6 (0.0-1.0) % Lymph # (Auto) 1.71 (1.10-4.50) K/mm3 [place] # (Auto) 0.70 (0.10-0.90) K/mm3 Eos # (Auto) 0.12 (0.02-0.50) K/mm3 Baso # (Auto) 0.05 (0.00-0.10) K/mm3 Abs Immat Gran (auto) 0.02 H (0.00-0.00) K/mm3 Absolute Neuts (auto) 5.83 (1.70-7.20) K/mm3 Absolute Nucleated RBC 0.00 (0.00-0.00) K/mm3 Nucleated RBC % 0.0 (0-0.0) % Sodium 142 (137-145) mmol/L Potassium 4.0 (3.4-5.0) mmol/L Chloride 107 (98-107) mmol/L Carbon Dioxide 25 (22-30) mmol/L Anion Gap 10 (4-12) mmol/L BUN 15 (7-17) mg/dL Creatinine 0.76 (0.7-1.0) mg/dL Estim Creat Clear Calc 109 ml/min Estimated GFR > 60 (59 - ) Glucose 109 (65-110) mg/dL Calculated Osmolality 295 (285-295) mOsm/kg Calcium 9.3 (8.4-10.2) mg/dL Total Bilirubin 1.1 (0.2-1.3) mg/dL AST 31 (14-36) U/L ALT 33 (6-35) U/L Alkaline Phosphatase 76 (38-126) U/L Total Protein 7.6 (6.3-8.2) g/dL Albumin 4.7 (3.5-5.1) g/dL Urine Color Yellow (Yellow) Urine Appearance Clear (Clear) Urine pH 5.5 (5.0-8.0) Ur Specific [place] >= 1.030 H (1.010-1.020) Urine Protein Negative (Negative) Urine Glucose (UA) Negative (Negative) Urine Ketones Trace H (Negative) Ur Blood (Man) Negative (Negative) Urine Nitrate Negative (Negative) Urine Bilirubin Negative (Negative) Urine Urobilinogen 1.0 (0.2-1.0) mg/dL Leukocyte Esterase Rfl Negative (Negative) REDD/UL Imaging Data Attestation: I personally reviewed and interpreted this imaging study as follows: Radiologist's impression: CT scan of the abdomen and pelvis without contrast is negative for acute process Discharge Plan Discharge Clinical Impression: Incontinence of urine Qualifiers: Urinary Incontinence type: other incontinence Qualified Code(s): N39.498 - Other specified urinary incontinence Patient Disposition: Home Condition: Stable Instructions: Urinary Incontinence (ED) Additional Instructions: Please follow-up with the primary doctor in the next week. Please have referral to Urology for further evaluation of the urinary loss. Please discuss with your gynecological surgeon who did her hysterectomy about this problem as well. Patient Language: Lao Prescriptions: No Action No Home Medications Follow-up/Referrals: Bo Cullen MD [Physician, Internal Medicine] Time of Disposition: 16:58
[2025-04-22 16:13] LABS: Add Urine Microscopic? NO; Appearance Urine Clear (Clear); Glucose Urine UA Negative (Negative); Leukocyte Esterase Ur Negative LEU/UL (Negative); Nitrate Urine Negative (Negative); Specific Grav Ur >= 1.030 (1.010-1.020)
[2025-04-22 16:36] LABS: Hematocrit 42.5 % (35.0-49.0); Hemoglobin 13.8 g/dL (12.0-15.0); Immature Granulocyte Percent A 0.2 % (0.0-0.0); Lymphocytes Absolute Auto 1.71 K/mm3 (1.10-4.50); Mean Corpuscular HGB Conc 32.5 g/dL (32-36); Mean Corpuscular Hemoglobin 27.2 pg (27.0-31.0); Mean Corpuscular Volume 83.8 fL (78.0-102.0); Nucleated Red Blood Cells Absolute Auto 0.00 K/mm3 (0.00-0.00); Nucleated Red Blood Cells Perc 0.0 % (0-0.0); Platelet Count Result 321 K/mm3 (150-420); Red Blood Count 5.07 M/mm3 (4.20-5.40); White Blood Count 8.4 K/mm3 (4.8-10.8)
[2025-04-22 16:47] LABS: Alanine Aminotransferase 33 U/L (6-35); Albumin Level 4.7 g/dL (3.5-5.1); Alkaline Phosphatase 76 U/L (38-126); Anion Gap 10 mmol/L (4-12); Aspartate Amino Transferase 31 U/L (14-36); Blood Urea Nitrogen 15 mg/dL (7-17); Calcium 9.3 mg/dL (8.4-10.2); Carbon Dioxide 25 mmol/L (22-30); Chloride 107 mmol/L (98-107); Estimated CRCL calculation 109 ml/min; Estimated Glomerular Filt Rate > 60; Glucose 109 mg/dL (65-110); Osmolality Calculated 295 mOsm/kg (285-295); Potassium 4.0 mmol/L (3.4-5.0); Sodium 142 mmol/L (137-145); Total Protein 7.6 g/dL (6.3-8.2)
[2025-04-22 17:15] VITALS: BP 138/89; PULSE 72; RESP 20; O2SAT 94
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
--- OUTSIDE RECORDS SUMMARY | 2025-04-22 20:05 | XMS_ITS | Data Portability ---
Author Organization [facility] Address [address] [place] [address] Assessment No assessment recorded. Plan of Treatment Reminders Order Date Submit Date Provider Last Modified By Organization Details Last Modified Time Details Appointments None recorded. Lab hsv-2 igg Ab, serum 2024 025 [facility] (Lab), [address], [place], [address], 5 12:05:49 hbcab (hepatitis B core Ab) igm, serum 2024 025 [facility] (Lab), [address], [place], [address], 5 12:05:49 HBsAg (hepatitis B surface Ag), serum 2024 025 [facility] (Lab), [address] [place], [address], 5 12:05:48 hepatitis C virus Ab, serum 2024 025 [facility] (Lab), [address], [place], [address], 5 12:05:47 HIV 1+2 AB + HIV 1 p24 Ag, qualitative immunoassay , serum 2024 025 [facility] (Lab), [address] [place], [address], 5 12:05:47 RPR (rapid plasma reagin), serum 2024 025 [facility] (Lab), [address], [place], [address], 5 12:05:48 CT + NG + TV, RNA, unspecified specimen 2024 025 [facility] (Lab), [address] [facility], [place], [address], 5 08:48:20 Referral None recorded. Procedures None recorded. Surgeries robotic assisted hysterectom y with salpingecto my (SURG) 2024 025 [facility], [facility] [address], [place], [address], 16:16:16 Imaging None recorded. Medication Orders None recorded. Patient TargetsNo targets recorded. Patient InstructionsNo instructions recorded. Reason for Referral None Reported. Results Created Date Observation Date Name Description Value Unit Range Abnormal Flag Note LastModifiedBy Organization Detail LastModifiedTime 08/29/1908/28/2024 urina lysis , dipst ick Leukocytes - Not Available Randy gutierrez [address], [place], [address], 08/28/2024 10:55:58 08/29/19 25 08/28/2024 urina lysis , dipst ick Nitrite - Not Available [facility] [address], [place], [address], 08/28/2024 10:55:58 08/29/19 25 08/28/2024 urina lysis , dipst ick Urobilinogen - Not Available [facility] [address], [place], [address], 08/28/2024 10:55:58 08/29/19 25 08/28/2024 urina lysis , dipst ick Protein trace Not Available [facility] [address], [place], [address], 08/28/2024 10:55:58 08/29/19 25 08/28/2024 urina lysis , dipst ick pH 8 Not Available [place] [facility] [address], [place], [address], 08/28/2024 10:55:58 08/29/19 25 08/28/2024 urina lysis , dipst ick Specific [place] 1.000 Not Available [facility] [address], [place], [address], 08/28/2024 10:55:58 08/29/19 25 08/28/2024 urina lysis , dipst ick Ketone - Not Available [facility] [address], [place], [address], 08/28/2024 10:55:58 08/29/19 25 08/28/2024 urina lysis , dipst ick Bilirubin - Not Available [facility] jagdeep [address], [place], [address], 08/28/2024 10:55:58 08/29/19 25 08/28/2024 urina lysis , dipst ick Glucose - Not Available [place] [facility] [address], [place], [address], 08/28/2024 10:55:58 08/29/19 25 08/28/2024 urina lysis , dipst ick Appearance Clear Not Available [facility] [address], [place], [address], 08/28/2024 10:55:58 08/29/19 25 08/28/2024 urina lysis , dipst ick Color yellow Not Available [facility] [address], [place], [address], 08/28/2024 10:55:58 08/31/19 25 08/30/2024 CULTU RE: URINE result report SEE RESULT S BELOW abnormal Test: Cultu re: Urine Speci men Sourc e: Urine - Clean Catch Speci men Type: Urine Speci men Date: 2024 0844 Resul t Date: 2024 0207 Resul t Statu s: Final resul t Abnor mal: Yes Resul ting Lab: [facility] [address] [facility] [address] Tel: [phone] CULTU RE ----- ----- ----- --- >100, [...] lab withi n 5 days. Not Available [facility] (Lab) [address] [facility], [place], [address], 09/01/2024 03:11:12 08/31/19 25 08/30/2024 IMAGE GUIDE D PAP AND HPV REGAR DLESS image guided Pap, HPV regardless of Pap result SEE RESULT S BELOW CASE REPOR T: Cytol ogy Gynec ologi rosario Repor t Case: [id number] Autho leno g Provi betty: Mona Gordon MD Colle cted: 08/30 0840 Order ing Locat ion: [place] [facility] Recei prabhu: 08/31 1322 First Scree n: Mona Sullivan ret, CT Rescr een: Cruzito Rushing ed, CT Speci men: Scree carole Pap - Image d, Cervi x STATE MENT OF ADEQU ACY: Satis facto ry for evalu ation Trans forma tion zone compo nent absen t ----- ----- ----- ----- ----- ----- ----- ----- ----- ----- ----- ----- ----- ----- ----- ----- ----- ---- FINAL DIAGN OSIS: Negat london for Intra epith elial Lesio n or Saleem benton (NIL) . Vaishali holm nt. Elect imelda ross d by Cruzito sue, CT on 2024 at [...] Thinp rep Imagi ng Syste m. CLINI ROSARIO INFOR MATIO N: Menst rual Statu s: LMP (if appli cable ): Clini rosario Histo ry/Pr eviou s Pap: Type of Neopl chelo (if appli cable ): Signi belem t Clini rosario Findi ngs: Other Histo ry: Hormo tutu [...] ng do not corre late with physi rosario and/o r histo rical findi ngs, furth er inves tigat ion is recom ashley d, as clini yoselin warra nted. Not Available [facility] (Lab) [address] , [place], [address], 09/03/2024 18:31:01 08/31/19 25 08/30/2024 CT/GC (HARVINDER) , THINP REP VIAL chlamydia trachomatis, PCR Positi ve negati ve abnormal Posit london: Prese nce of C. trach omati s (by HARVINDER) Chlam ydia trach omati s RNA detec ghislaine by PCR. Not Available [facility] (Lab) [address] , [place], [address], 09/03/2024 18:31:02 08/31/19 25 08/30/2024 CT/GC (HARVINDER) , THINP REP VIAL neisseria gonorrhoeae, PCR Negati ve negati ve Not Available [facility] (Lab) [address] , [place], [address], 09/03/2024 18:31:02 08/31/19 25 08/30/2024 TRICH OMONA S VAGIN JIM (RRNA ) trichomonas vaginalis ribosomal RNA (rrna) Positi ve negati ve abnormal Not Available [facility] (Lab) [address] , [place], [address], 09/03/2024 18:31:02 09/01/19 25 08/31/2024 DHEA SULFA TE DHEA-sulfate 214 ug/dL Femal e Range s Age(y ) Range (ug/d L) 10-15 34-28 0 15-20 65-36 8 20-25 148-4 07 25-35 99-34 0 35-45 61-33 7 45-55 35-25 6 55-65 19-20 5 65-75 9-246 > 75 12-15 4 Not Available [facility] (Lab) [address] [place], [address], 09/12/2024 20:22:44 09/01/19 25 08/31/2024 PROLA CTIN prolactin, total 15.40 NG/mL 4.79-2 3.30 This assay was perfo rmed using [employer] ratio n reage nts and test kits. Value s obtai chata with other assay metho ds or kits canno t be used inter macias eably . Not Available [facility] (Lab) [address] [place], [address], 09/12/2024 20:22:45 09/01/19 25 08/31/2024 PROGE STERO NE progesterone 14.30 NG/mL This assay was perfo rmed using [employer] reage nts and test kits. Value s obtai chata with other assay metho ds or kits canno t be used inter macias eably . Femal e Proge stero ne Range s: Folli cular phase 0.06- 0.89 ng/mL Ovula tion phase 0.12- 12.00 ng/mL Lutea l phase 1.83- 23.90 ng/mL Postm enopa usal <0.05 -0.13 ng/mL Healt hy Pregn ant Women 1st Trime ster 11.0- 44.30 2nd Trime ster 25.40 -83.3 0 3rd Trime ster 58.70 -214. 00 Not Available [facility] (Lab) [address] [place], [address], 09/12/2024 20:22:45 09/01/19 25 08/31/2024 FSH, LH, ESTRA DIOL estradiol 158.0 pg/mL This assay was perfo rmed using [employer] reage nts and test kits. Value s obtai chata with other assay metho ds or kits canno t be used inter [facility] . Femal e Estra diol Range s: Folli cular phase 12.4- 233 pg/mL Ovula tion phase 41.0- 398 pg/mL Lutea l phase 22.3- 341 pg/mL Postm enopa usal <5-13 8 pg/mL Healt hy Pregn ant Women 1st Trime ster 154-3 243 pg/mL 2nd Trime ster 1561- 69725 pg/mL 3rd Trime ster 8525- >3000 0 pg/mL Not Available [facility] (Lab) [address] [place], [address], 09/12/2024 20:22:46 09/01/19 25 08/31/2024 FSH, LH, ESTRA DIOL FSH 3.2 mIU/m L This assay was perfo rmed using [employer] n reage nts and test kits. Value s obtai chata with other assay metho ds or kits canno t be used inter [facility] . Femal es Folli cular : 3.5-1 2.5 mIU/m L Ovula tion: 4.7-2 1.5 mIU/m L Lutea l: 1.7-7 .7 mIU/m L Postm enopa use: 25.8- 134.8 mIU/m L Not Available [facility] (Lab) [address] [place], [address], 09/12/2024 20:22:46 09/01/19 25 08/31/2024 FSH, LH, ESTRA DIOL LH 3.1 mIU/m L This assay was perfo rmed using [employer] reage nts and test kits. Value s obtai chata with other assay metho ds or kits canno t be used [facility] . Femal es Mid-F ollic ular: 2.4-1 2.6 mIU/m L Mid-C ycle: 14.0- 95.6 mIU/m L Mid-L uteal : 1.0-1 1.4 mIU/m L Postm enopa use: 7.7-5 8.5 mIU/m L Not Available [facility] (Lab) [address] [facility], [place], [address], 09/12/2024 20:22:46 09/01/19 25 08/31/2024 TSH, REFLE X FREE T4 TSH 1.70 uIU/m L 0.30-5 .33 Not Available [facility] (Lab) [address] [facility], [place], [address], 09/12/2024 20:22:46 09/01/19 25 08/31/2024 HUMAN SEX HORMO NE CLALI NG GLOBU MAXIMILIAN sex hormone binding globulin 82.4 nmole s/L 18.2-1 35.5 Not Available [facility] (Lab) [address] [facility], [place], [address], 09/12/2024 20:22:47 09/01/19 25 08/31/2024 HEMOG LOBIN A1C hemoglobin A1C 5.6 % 4.0-5. 6 The Ameri can Diabe praneeth Assoc iatio n recom mends that a prima ry goal of thera py sana d be a HBA1C of < 7% and that physi cians jamirul d reeva luate the treat ment regim en in patie nts with HBA1C value s consi stent ly > 8%. <5.7% Cindy l 5.7 - 6.4% Incre ased risk for diabe praneeth >=6.5 % Diagn ostic of diabe praneeth <7.0% Goal of thera py >8.0% Actio n sugge sted Not Available [facility] (Lab) [address] [facility], [place], [address], 09/12/2024 20:22:47 09/01/19 25 08/31/2024 TESTO STERO NE, FREE( DIALY SIS) AND TOTAL (LC/M S/MS) testosterone , total 32 NG/dL 2-45 For addit ional infor jessica bowling e refer to http: //edu catio n.que stdia gnost ics.c om/fa q/ Total Testo stero neLCM SMSFA Q165 (This link is being provi ded for infor matio nal/ educa nick l purpo ses only. ) This test was devel oped and its teodoro tical perfo rmanc e randy cteri stics have been deter mined by [employer] [place], [place]. It has not been clear ed or appro prabhu by the U.S. Food and Drug Admin istra tion. This assay has been valid ated pursu ant to the CLIA regul ation s and is used for clini rosario purpo ses. Not Available [facility] (Lab) [address] [place], [address], 09/12/2024 20:22:47 09/01/19 25 08/31/2024 TESTO STERO NE, FREE( DIALY SIS) AND TOTAL (LC/M S/MS) testosterone , free 3.9 pg/mL 0.1-6. 4 This test was devel oped and its teodoro tical perfo rmanc e randy cteri stics have been deter mined by [employer] ostgarry s [place], [place]. It has not been clear ed or appro prabhu by the U.S. Food and Drug Admin istra tion. This assay has been valid ated pursu ant to the CLIA regul ation s and is used for clini rosario purpo ses. Perfo rming Organ izati on [facility] [employer] n: Site ID: AMD Name: Ed Stamp.it jazzgarry phelan [facility] tute Addre ss: [id number] [facility] [employer] [place] Direc tor: Aaliyah Shaffer MD PhD Not Available [facility] (Lab) [address] [place], [address], 09/12/2024 20:22:47 09/01/19 25 08/31/2024 17-OH PROGE [...] cteri stics have been deter mined by [employer]. It has not been clear ed or appro prabhu by the FDA. This assay has been valid ated pursu ant to the CLIA regul ation s and is used for clini rosario purpo ses. Perfo rming Organ izati on Infor matio n: Site ID: EZ Name: Doostang Erik simon s/Kali colon [facility] [place] , Addre ss: [id number] [facility] [place] [id number] Direc tor: Sugey matt MD,Ph D,JAISON Not Available [facility] (Lab) [address] [place], [address], 09/12/2024 20:22:48 10/26/19 25 10/25/2024 CT/GC AND TRICH OMONA S VAGIN JIM (RRNA ), URINE chlamydia trachomatis, PCR Negati ve negati ve Not Available [facility] (Lab) [address] [place], [address], 10/27/2024 08:48:20 10/26/19 25 10/25/2024 CT/GC AND TRICH OMONA S VAGIN JIM (RRNA ), URINE neisseria gonorrhoeae, PCR Negati ve negati ve Not Available [facility] (Lab) [address] [place], [address], 10/27/2024 08:48:20 10/26/19 25 10/25/2024 CT/GC AND TRICH OMONA S VAGIN JIM (RRNA ), URINE trichomonas vaginalis ribosomal RNA (rrna) Negati ve negati ve Not Available [facility] (Lab) [address], [place], [address], 10/27/2024 08:48:20 11/18/19 25 11/17/2024 HIV 1/2 ANTIG EN/AN TIBOD Y, REFLE X CONFI RMATI ON HIV antigen/anti body Nonrea ctive nonrea ctive HIV-1 antig en and HIV-1 /HIV- 2 antib odies were not detec ghislaine. No labor atory evide nce of HIV infec tion. Not Available [facility] (Lab) [address], [place], [address], 11/18/2024 12:05:47 11/18/1911/17/2024 HEPAT ITIS C ANTIB FREDO SCREE N, REFLE X TO CONFI RMATI ON hepatitis C antibody Non-re active non-re active Antib odies to HCV Not Detec ghislaine, does not exclu de the possi bilit y of expos ure to HCV. Not Available [facility] (Lab) [address], [place], [address], 11/18/2024 12:05:47 11/18/1911/17/2024 HEPAT ITIS B SURFA CE ANTIG EN hepatitis B surface antigen Non-re active non-re active This assay was perfo rmed using [employer] n reage nts and test kits. Value s obtai chata with other assay metho ds or kits canno t be used inter macias eably . Not Available [facility] (Lab) [address], [place], [address], 11/18/2024 12:05:48 11/18/19 25 11/17/2024 RPR SCREE N, REFLE X TITER /CONF IRMAT ION RPR qualitative Nonrea ctive nonrea ctive Not Available [facility] (Lab) [address] [facility], [place], [address], 11/18/2024 12:05:48 11/18/19 25 11/17/2024 HEPAT ITIS B CORE, IGM hepatitis B core IgM antibody Non-re active non-re active Antib odies to Hepat itis B Core IgM not detec ghislaine. Does not exclu de the possi bilit y of expos ure to or infec tion with HBV. Corre late with other Hepat itis B serol ogies . Not Available [facility] (Lab) [address] [facility], [place], [address], 11/18/2024 12:05:49 11/18/19 25 11/17/2024 HERPE S SIMPL EX VIRUS TYPE 2 SPECI FIC AB, IGG herpes simplex virus 2 IgG Positi ve negati ve abnormal Not Available [facility] (Lab) [address] [facility], [place], [address], 11/18/2024 12:05:49 11/18/19 25 11/17/2024 HERPE S SIMPL EX VIRUS TYPE 2 SPECI FIC AB, IGG herpes simples virus 2 IgG, quant >8.0 ai 0.0-0. 8 high Not Available [facility] (Lab) [address] [facility], [place], [address], 11/18/2024 12:05:49 09/01/19 25 08/31/2024 US, pelvi s No observ ation record ed. [email or web address] [place] [address], [place], [address], 08/31/2024 18:15:55 09/01/19 25 08/31/2024 US, trans vagin al No observ ation record ed. [email or web address] [place] [facility] [address], [place], [address], 08/31/2024 18:16:06 09/01/19 25 08/31/2024 US, pelvi s No observ ation record ed. [email or web address] [address], [place], [address], 08/31/2024 22:24:14 Result Notes None recorded. Procedures Surgical History Date Name Laterality Status Provider Name and Address Organization Details Recorded Time 11/26/19 25 ROBOTIC ASSISTED HYSTERECTOMY WITH SALPINGECTOMY (SURG) completed Deanna [facility] 11/30/2024 11:37:18 08/31/19 25 Date of Last Pap Smear completed [facility] 09/18/2024 10:16:35 06/09/19 21 Ovarian Cystectomy completed [facility] 08/28/2024 10:42:42 08/21/19 15 Caesarean Section completed [facility] 08/28/2024 10:41:43 06/09/19 15 Tubal Ligation completed [facility] 08/28/2024 10:42:16 04/05/20 13 Caesarean Section completed [facility] 08/28/2024 10:41:29 Imaging Results None recorded. Procedure Notes None recorded. Medical Equipment None Reported. Allergies Allergen ID Allergen Name Allergen Category Reaction Reaction Severity Criticality Documentation Date Start Date Code Code System Note Provider Name and Address Organization Details Recorded Time 36897 Product containin g penicilli n (product) medicatio n Not available Not available Not available 08/28/2024 31557 8001 SNOMED [facility] 10:33:31 Medications Name Sig Start Date Stop Date Status Note LastModified by Organization Details LastModified Time doxycycline hyclate 100 mg capsule TAKE 1 CAPSULE BY MOUTH EVERY 12 HOURS FOR 7 DAYS 10/23 completed Not Available Not Available Not Available azithromyci n 250 mg tablet TAKE 2 TABLETS BY MOUTH TODAY, THEN TAKE 1 TABLET DAILY FOR 4 DAYS DIRECTED 12/17 completed Not Available Not Available Not Available valacyclovi r 1 gram tablet Take 1 tablet every 12 hours by oral route. 2024 active Not Available Not Available Not Avai lable hydrocodone 5 mg-acetamin ophen 325 mg tablet TAKE 1-2 TABLETS BY MOUTH EVERY 6 HOURS NEEDED FOR PAIN 12/17 completed Not Available Not Available Not Available [...] Not Available Not Available Not Available ondansetron 8 mg disintegrat ing tablet TAKE 1 TABLET BY MOUTH EVERY 8 HOURS active Not Available Not Available No t Available gabapentin 100 mg capsule TAKE 1 [...] Available Not Available Vitals Date Recorded Body height Body mass index (BMI) Body weight Systolic And Diastolic Provider Name and Address Organization Details Last Updated DateTime 09/18/2024 167.64 cm 35.4 kg/m2 57726.45 g 127/84 mm[Hg] Jennifer Swartz [facility] 09/18/2024 10:20:50 Date Recorded Body height Body mass index (BMI) Body weight Systolic And Diastolic Provider Name and Address Organization Details Last Updated DateTime 10/23/2024 167.64 cm 35.5 kg/m2 58724.32 g 116/73 mm[Hg] Marly Marte [facility] 10/23/2024 11:25:32 Date Recorded Body height Body mass index (BMI) Body weight Systolic And Diastolic Provider Name and Address Organization Details Last Updated DateTime 11/17/2024 167.64 cm 36.3 kg/m2 113158.28 g 130/85 mm[Hg] Deanna Rip [facility] 11/17/2024 16:08:03 Date Recorded Body height Body mass index (BMI) Body weight Systolic And Diastolic Provider Name and Address Organization Details Last Updated DateTime 12/17/2024 167.64 cm 35.7 kg/m2 236526.63 g 123/77 mm[Hg] Jennifer Sheridan [facility] 12/17/2024 14:52:30 Social History Question Answer Notes LastModified by Organizat ion Details LastModified Time Tobacco Smoking Status Current Every Day Smoker cigarettes Jennifer Sheridan [facility] 08/28/2024 10:40:00 Are You Blind Or Do You Have Difficulty Seeing? Yes [email or web address] Information not available 08/28/2024 What Is Your Level Of Caffeine Consumption? Heavy [email or web address] Information not available 08/28/2024 In The 14 Days Before Symptom Onset, Have You Had Close Contact With A Laboratory-confir med COVID-19 While That Case Was Ill? No [email or web address] Information not available 08/28/2024 In The 14 Days Before Symptom Onset, Have You Had Close Contact With A Person Who Is Under Investigation For COVID-19 While That Person Was Ill? No [email or web address] Information not available 08/28/2024 Have You Been To An Area Known To Be High Risk For COVID-19? No Information not available 08/28/2024 Are You Deaf Or Do You Have Serious Difficulty Hearing? No [email or web address] Information not available 08/28/2024 What Type Of Diet Are You Following? REGULAR [email or web address] Information not available 08/28/2024 What Is The Highest Grade Or Level Of School You Have Completed Or The Highest Degree You Have Received? [id number] [email or web address] Information not available 08/28/2024 Are There Any Guns Present In Your Home? No [email or web address] Information not available 08/28/2024 Do You Use Protection During Sex? No [email or web address] Information not available 08/28/2024 Do You Use Your Seat Belt Or Car Seat Routinely? Yes [email or web address] Information not available 08/28/2024 Are You Sexually Active? Yes [email or web address] Information not available 08/28/2024 Do You Have Smoke And Carbon Monoxide Detectors In Your Home? Yes [email or web address] Information not available 08/28/2024 At What Age Did You Start Smoking Tobacco? 16 Information not available 09/18/2024 How Much Tobacco Do You Smoke? 0.5 PPD [email or web address] Information not available 09/18/2024 Do You Use Sunscreen Routinely? Yes [email or web address] Information not available 08/28/2024 Have You Used IV Drugs? No [email or web address] Information not available 09/18/2024 Do You Have Difficulty Walking Or Climbing Stairs? No [email or web address] Information not available 08/28/2024 Sex: Unknown Functional Status Question Answer Note LastModified by Organizat ion Details LastModified Time Do you use any illicit or recreational drugs? No [email or web address] Information not available 09/18/2024 What is your level of alcohol consumption? None Information not available 08/28/2024 Are you currently employed? No [email or web address] Information not available 08/28/2024 Are you able to walk independently without assistance or assistive devices? YESWOREST [email or web address] Information not available 08/28/2024 Are you able to care for yourself independently? Yes [email or web address] Information not available 08/28/2024 Do you have difficulty dressing, bathing, grooming, or toileting? No [email or web address] Information not available 08/28/2024 What is your exercise level? None [email or web address] Information not available 08/28/2024 Mental Status Question Answer Note LastModified by Organization D etails LastModified Time Do you feel stressed (tense, restless, nervous, or anxious, or unable to sleep at night)? [id number] [email or web address] Information not available 08/28/2024 Family History Relationship Description Onset Age of this Age Resolved Age Notes LastModified by Organization Details LastModified Time Mother Anemia [email or web address] Not available 08/28/2024 10:39:09 Mother Asthma [email or web address] Not available 08/28/2024 10:39:16 Mother Seizure disorder [email or web address] Not available 12/07 14:42:24 Sister Anemia Not available 08/28/2024 10:39:09 Father Diabetes mellitus [email or web address] Not available 2024 10:39:26 Father Hypertensive disorder [email or web address] Not available 2024 10:39:34 Medical History Condition Response Allergies (Food, seasonal, environmental ) N Other N Breast Cancer N Drug/Latex Allergies/Reactions Y Blood Transfusion N Dermatologic Disorders N Lung Disease N [...] Diagnosis SNOMED-CT Code Diagnosis ICD10 Code Diagnosis IMO Codes Diagnosis Note [id number] Mychal Gordon MD [place] [facility] [address] [address] 08/28/2024 10:05:14 08/28/2024 11:25:15 Abnormal uterine bleeding [id number] 9100 N93.9 Urinary symptoms [id number] R39.9 Gynecologi c examination [id number] Z01.419 Annual gynecologi rosario exam performed. Patient will come back in [...] Pap smear- today laboratory evaluation - today [id number] Mychal Gordon MD [place] [facility] [address] [address] 08/31/2024 17:25:28 09/01/2024 08:24:10 Menorrhagia [id number] N92.0 N94.6 N94.10 N92.6 [id number] Mychal Gordon MD [facility] [address] [address] 09/18/2024 10:13:52 09/18/2024 12:19:10 Pain in pelvis [id number] R10.2 Endometrio sis of pelvis [id number] N80.9 This patient is a 34-year-ol d [...] minutes on the patient's care in total. [id number] Mychal Gordon MD [facility] [address],[place] [address] 10/23/2024 10:44:26 10/25/2024 09:53:53 Bacterial disease screening [id number] Z11.8 [id number] Sexually t ransmitted infectious disease [id number] A[age]-year-ol d female who presents for STD screening. She has been exposed possibly 2 sexually transmitte d disease. We talked about prevention . We talked about the blood testing. That will be performed as well. [id number] Mycahl Gordon MD [facility] [address],[place] [address] 11/17/2024 15:10:02 11/18/2024 04:50:00 Pain in pelvis [id number] R10.2 [id number] Endometrio sis (clinical) [id number] N80.9 [id number] this patient is a 34-year-ol d female with longstandi ng pelvic pain and endometrio sis. We have agreed to perform robotic assisted hysterecto my with bilateral salpingect layne. The patient understand s the risks, benefits, and alternativ es. She has completed the informed consent process and is ready to proceed. [id number] Mychal Gordon MD [facility] [address] [place] [place] [address] 11/25/2024 08:54:36 11/29/2024 09:19:14 [id number] Mychal Gordon MD [facility] [address] [place] [address] 12/17/2024 14:42:16 12/17/2024 15:47:40 Postoperative visit [id number] Z48.89 [id number] female Patient presents for postop follow-up. She is 1 week postop from a total robotic hysterecto my bilateral salpingect layne and left oophorecto my . She has no complaints . Her incisions are clean dry and intact. She is recovering normally. She will follow-up as needed. Health Concerns Section Related Observation LastModified by Organization Detai ls LastModified Time None Recorded Concern Status LastModified by Organization Details LastModified Time None Recorded Advance Directives Directive None Recorded Payers Insurance Date Sequence Insurance Name Policy Number Policy Wilde Covered Member ID Wilde Member ID Guarantor Name 12/16/2024 1 [facility] - DOS ON OR AFTER 2020 - DUAL ELIGIBLE (MEDICARE REPLACEMENT/AD VANTAGE - HMO) Yudith Larios [id number] Yudith Larios 12/16/2024 1 [facility] (MEDICAID REPLACEMENT - HMO) Yudith Larios [id number] Yudith Larios Notes Date Note Type Note Provider Name and Address Organization Details Recorded Time 09/18/2024 text/html This patient is a 34-year-old [...] care in total. Mychal Gordon MD [address], [place], [address], , [facility] 09/18/2024 12:18:16 10/23/2024 text/html 34-year-old female who presents for STD screening. She has been exposed possibly 2 sexually transmitted disease. We talked about prevention. We talked about the blood testing. That will be performed as well. Mychal Gordon MD [address], [place], [address], , [facility] 10/23/2024 13:34:58 11/17/2024 text/html this patient [...] hemorrhage and infection. Mychal Gordon MD [address], [place], [address], , [facility] 11/17/2024 19:18:12 12/17/2024 text/html female Patient presents for postop follow-up. She is 1 week postop from a total robotic hysterectomy bilateral salpingectomy and left oophorectomy . She has no complaints. Her incisions are clean dry and intact. She is recovering normally. She will follow-up as needed. Mychal Gordon MD [address], [place], [address], , [facility] 12/17/2024 15:42:33 OBGyn Episode Ob Episode Information Episode Created Date Number of Fetuses Patient Bloodtype Patient rh Status Prepregnancy Weight lbs Domestic Partner Domestic Partner Phone Father Name Tire Adjuster Status 10/24/19 25 1 CLOSED Fetus Data First Name Last Name Admitted to NICU Weight (g) Sex Living Outcome Pediatric Complications Fetus ID Race Codes Race Delivery Type , Spontane ous [id number] John Calculation Initial John Date Initial Exam [...] Domestic Partner Domestic Partner Phone Father Name Tire Adjuster Status 08/29/19 25 1 CLOSED Fetus Data First Name Last Name Admitted to NICU Weight (g) Sex Living Outcome Pediatric Complications Fetus ID Race Codes Race Delivery Type 2267.96 M Prematur e [id number] Primary John Calculation Initial John Date Initial [...] Domestic Partner Domestic Partner Phone Father Name Tire Adjuster Status 08/29/19 25 1 CLOSED Fetus Data First Name Last Name Admitted to NICU Weight (g) Sex Living Outcome Pediatric Complications Fetus ID Race Codes Race Delivery Type 2267.96 F Prematur e 32737 Vaginal Delivery John Calculation Initial John Date [...] Domestic Partner Domestic Partner Phone Father Name Tire Adjuster Status 08/29/19 25 1 CLOSED Fetus Data First Name Last Name Admitted to NICU Weight (g) Sex Living Outcome Pediatric Complications Fetus ID Race Codes Race Delivery Type 907.184 M Prematur e [id number] Primary John Calculation Initial John Date Initial [...]
[2025-04-26 13:43] LABS: Bilirubin,Total < 0.1 mg/dL (0.2-1.3)
== END 2025-04-22 17:15 | disposition home or self-care (01) ==
PROVIDERS: Emergency Provider Emergency Medicine; Referring Provider Family Medicine
DX: N39.498 Other specified urinary incontinence (principal); F17.210 Nicotine dependence, cigarettes, uncomplicated; Z90.710 Acquired absence of both cervix and uterus
CPT/HCPCS: 36415; 74176; 80053; 81003; 85025; 99284